=== PATIENT | female | born 1950 | race Caucasian/White ===

== ENCOUNTER 2018-01-11 19:37 | Observation (INO) | payer MEDICARE, SELFPAY ==
[2018-01-11 19:38] VITALS: BP 180/138; BP 207/135; PULSE 92; PULSE 98; RESP 16; RESP 18; TEMP 37.1; O2SAT 98; BMI 21.7
--- NOTE | 2018-01-11 19:49 | XR_ITS ---
XR chest 2V HISTORY: ITS.REASON: chest pain ORDERING PHYSICIAN: Jeremias David MD PATIENT AGE: 67 years COMPARISON: 11/13/2016 FINDINGS: The cardiomediastinal silhouette and pulmonary vascularity are within normal limits. The lungs are clear without infiltrates, suspicious nodules, or pleural effusions. Surgical clips are present over the left lower chest. Coronary artery stents are noted. There is a faint nodular opacity in the right midlung at the second interspace measuring 5 mm, possibly due to to summation artifact from overlying vessel and may be confirmed with follow-up No acute bony abnormalities. IMPRESSION: No acute finding. Possible summation density right upper lobe versus developing nodule. Consider follow-up radiograph to confirm stability or resolution
--- NOTE | 2018-01-11 20:04 | PC.NURSE ---
PT TO XRAY AT THIS TIME
--- NOTE | 2018-01-11 20:07 | PC.NURSE ---
PT BACK FROM XRAY
[2018-01-11 20:16] LABS: Basophils # 0.1 K/mm3 (0-0.2); Basophils % 0.5 % (0.1-2.0); Eosinophils # 0.2 K/mm3 (0.0-0.4); Eosinophils % 1.7 % (0.1-12.0); Hematocrit 40.1 % (37.0-47.0); Hemoglobin 12.2 g/dL (12.2-16.2); Lymphocytes # 4.1 K/mm3 (0.7-4.5); Lymphocytes % 43.6 K/mm3 (10-50); Mean Corpuscular HGB Conc 30.4 g/dL (31.8-35.4); Mean Corpuscular Hemoglobin 25.7 pg (27.0-31.2); Mean Corpuscular Volume 84.5 fl (81-99); Mean Platelet Volume 8.8 fl (7.4-10.4); Monocytes # 0.5 K/mm3 (0.1-1.0); Monocytes % 5.6 % (1.7-9.3); Neutrophils # 4.6 K/mm3 (1.8-7.8); Neutrophils % 48.6 % (37.0-80.0); Platelet Count 270 K/mm3 (142-424); Red Blood Count 4.74 M/mm3 (4.20-5.40); Red Cell Distribution Width 16.3 % (11.5-17.5); White Blood Count 9.4 K/mm3 (4.8-10.8)
[2018-01-11 20:23] LABS: Lipase 197 u/L (73-393)
[2018-01-11 20:26] VITALS: BP 144/85; PULSE 74; RESP 16; O2SAT 100
[2018-01-11 20:37] LABS: Alanine Aminotransferase 23 U/L (12-78); Albumin Level 4.1 gm/dL (3.4-5.0); Albumin/Globulin Ratio 1.1 (1.1-1.8); Alkaline Phosphatase 97 U/L (46-116); Amylase 35 U/L (25-125); Anion Gap 15.4 mEq/L (5-15); Aspartate Amino Transferase 14 U/L (15-37); Bilirubin,Total 0.4 mg/dL (0.2-1.0); Blood Urea Nitrogen 13 mg/dL (7-18); CKMB Relative Index 1.1 U/L (0-4.0); Calcium 8.6 mg/dL (8.5-10.1); Carbon Dioxide 25 mmol/L (21.0-32.0); Chloride 107 mmol/L (98-107); Creatine Kinase 70 U/L (26-192); Creatine Kinase MB 0.8 mg/ml (0.0-3.6); Creatinine Clearance Estimated 46 mL/min (0-300); Creatinine,Serum 0.75 mg/dL (0.55-1.02); Estimated Glomerular Filt Rate 78 ml/min (>60); GFR (African American) 94 ML/MIN (>60); Globulin 3.7 gm/dl (1.3-3.2); Glucose 114 mg/dL (74-106); Potassium 3.4 mmoL/L (3.5-5.1); Sodium 144 mmol/L (136-145); Total Protein,Serum 7.8 gm/dL (6.4-8.2); Troponin I < 0.02 ng/ml (0.00-0.06)
--- NOTE | 2018-01-11 20:50 | HMH.EDCP ---
ED Disposition Clinical Impression: Chest pain Qualifiers: Chest pain type: precordial pain Qualified Code(s): R07.2 - Precordial pain Disposition: Admitted as Observation Condition on Discharge: Good Referrals: Maurice Holden MD [Primary Care Provider] - - Critical Care Critical Care Time: No Attestation: On 01/11/18, the high probability of a clinically significant, sudden or life threatening deterioration of the following system(s) required my full and direct attention, intervention and personal management. The time I documented below is in addition to time spent performing reported procedures but includes the following listed in this critical care notation. Medical Decision Making - Medical Records Medical records reviewed: Yes: I reviewed the patient's medical records. Vital Signs: 01/11/18 19:38 01/11/18 20:26 Temperature 98.8 F Temperature Source Oral Pulse Rate [Right Brachial] 92 H 74 Respiratory Rate 16 16 Blood Pressure [Right Arm] 180/138 144/85 Blood Pressure Mean [Right Arm] 152 104 Blood Pressure Source [Right Arm] Automatic Cuff Automatic Cuff Blood Pressure Position [Right Arm] Supine Supine 02 Sat by Pulse Oximetry 98 100 Oxygen Delivery Method Room Air Room Air - Lab Data Lab results reviewed: Yes: I reviewed the patient's lab results. Lab Results 01/11/18 20:02: Sodium 144, Potassium 3.4 L, Chloride 107, Carbon Dioxide 25, Anion Gap 15.4 H, BUN 13, Creatinine 0.75, Estimated Creat Clear 46, Estimated GFR 78, Est GFR ( Amer) 94, Glucose 114 H, Calcium 8.6, Total Bilirubin 0.4, AST 14 L, ALT 23, Alkaline Phosphatase 97, Total Creatine Kinase 70, CK-MB (CK-2) 0.8, CK-MB (CK-2) Rel Index 1.1, Troponin I < 0.02, Total Protein 7.8, Albumin 4.1, Globulin 3.7 H, Albumin/Globulin Ratio 1.1, Amylase 35 01/11/18 20:02: Lipase 197 Result diagrams: 01/11/18 20:02 Orders (Tests/Meds): ED MEDICATIONS Generic Name Dose Route Start Last Admin Trade Name Freq PRN Reason Stop Dose Admin Nitroglycerin 0.4 mg 01/11/18 19:55 01/11/18 19:56 Nitrostat 0.4mg Sl Tablet SL 02/10/18 19:54 0.4 mg [id number] PRN Administration Chest Pain Discontinued Medications Generic Name Dose Route Start Last Admin Trade Name Sherry PRN Reason Stop Dose Admin Aspirin 324 mg 01/11/18 19:55 01/11/18 19:56 Aspirin 81mg Chewable Tablet PO 01/11/18 19:56 324 mg ONCE ONE Administration ORDERS Category Date Time Status XR chest 2V Stat Exams 01/11/18 19:49 Taken Complete Blood Count Auto Diff Stat Lab 01/11/18 20:02 Received ECG Request by /Brianna Stat Y 01/11/18 19:49 Ordered - Radiology Data #1 Image(s): Chest Image Reviewed: Yes I reviewed the patient's radiology image Preliminary Findings: Normal/NAD - ECG Data Tracing #1 I reviewed this ECG and interpreted as documented below: Normal Sinus Rhythm: Yes Ischemic changes: non-specific ST-T wave changes - Tomasz Inquiry Pt receiving controlled substance: No Chest Pain HPI - General Chief Complaint: Chest Pain Stated Complaint: cp Time Seen by Provider: 01/11/18 20:50 Mode of Arrival: Ambulatory Source of Information: Patient, Spouse, Medical Record Limitations: No Limitations Description of Symptoms (Recalled from ER Triage Doc. by RN): Reports chest pain that starts in her left chest, radiating into her left jaw. Reports mild SOA since syptoms started. CP started approx 16 hours ago - History of Present Illness HPI narrative: pt with lt ant chest pain with rad to neck - hx of ht disease MD complaint: chest pain indicative of cardiac Onset (ago): day(s) Duration: intermittent Activity at onset: during rest Pain location: substernal Severity: moderate Quality: tightness Risk Factors for CAD: Hypertension, Family Hx of CAD Treatments prior to or on arrival for Cardiac Chest Pain: none - SP Score Non-Stemi Age of patient: 65 yrs or more Number of risk factors for CAD: Presence
[2018-01-11 20:52] VITALS: BP 138/84; PULSE 69; RESP 18; O2SAT 97
--- NOTE | 2018-01-11 21:02 | ED_ITS ---
ED Disposition Clinical Impression: Chest pain Qualifiers: Chest pain type: precordial pain Qualified Code(s): R07.2 - Precordial pain Disposition: Admitted as Observation Condition on Discharge: Good Referrals: Maurice Holden MD [Primary Care Provider] - - Critical Care Critical Care Time: No Attestation: On 01/11/18, the high probability of a clinically significant, sudden or life threatening deterioration of the following system(s) required my full and direct attention, intervention and personal management. The time I documented below is in addition to time spent performing reported procedures but includes the following listed in this critical care notation. Medical Decision Making - Medical Records Medical records reviewed: Yes: I reviewed the patient's medical records. Vital Signs: 01/11/18 19:38 01/11/18 20:26 Temperature 98.8 F Temperature Source Oral Pulse Rate [Right Brachial] 92 H 74 Respiratory Rate 16 16 Blood Pressure [Right Arm] 180/138 144/85 Blood Pressure Mean [Right Arm] 152 104 Blood Pressure Source [Right Arm] Automatic Cuff Automatic Cuff Blood Pressure Position [Right Arm] Supine Supine 02 Sat by Pulse Oximetry 98 100 Oxygen Delivery Method Room Air Room Air - Lab Data Lab results reviewed: Yes: I reviewed the patient's lab results. Lab Results 01/11/18 20:02: Sodium 144, Potassium 3.4 L, Chloride 107, Carbon Dioxide 25, Anion Gap 15.4 H, BUN 13, Creatinine 0.75, Estimated Creat Clear 46, Estimated GFR 78, Est GFR ( Amer) 94, Glucose 114 H, Calcium 8.6, Total Bilirubin 0.4, AST 14 L, ALT 23, Alkaline Phosphatase 97, Total Creatine Kinase 70, CK-MB (CK-2) 0.8, CK-MB (CK-2) Rel Index 1.1, Troponin I < 0.02, Total Protein 7.8, Albumin 4.1, Globulin 3.7 H, Albumin/Globulin Ratio 1.1, Amylase 35 01/11/18 20:02: Lipase 197 Result diagrams: 01/11/18 20:02 Orders (Tests/Meds): ED MEDICATIONS Generic Name Dose Route Start Last Admin Trade Name Freq PRN Reason Stop Dose Admin Nitroglycerin 0.4 mg 01/11/18 19:55 01/11/18 19:56 Nitrostat 0.4mg Sl Tablet SL 02/10/18 19:54 0.4 mg Q5MINP PRN Administration Chest Pain Discontinued Medications Generic Name Dose Route Start Last Admin Trade Name Freq PRN Reason Stop Dose Admin Aspirin 324 mg 01/11/18 19:55 01/11/18 19:56 Aspirin 81mg Chewable Tablet PO 01/11/18 19:56 324 mg ONCE ONE Administration ORDERS Category Date Time Status XR chest 2V Stat Exams 01/11/18 19:49 Taken Complete Blood Count Auto Diff Stat Lab 01/11/18 20:02 Received ECG Request by /Brianna Stat Y 01/11/18 19:49 Ordered - Radiology Data #1 Image(s): Chest Image Reviewed: Yes I reviewed the patient's radiology image Preliminary Findings: Normal/NAD - ECG Data Tracing #1 I reviewed this ECG and interpreted as documented below: Normal Sinus Rhythm: Yes Ischemic changes: non-specific ST-T wave changes - Tomasz Inquiry Pt receiving controlled substance: No Chest Pain HPI - General Chief Complaint: Chest Pain Stated Complaint: cp Time Seen by Provider: 01/11/18 20:50 Mode of Arrival: Ambulatory Source of Information: Patient, Spouse, Medical Record Limitations: No Limitations Description of Symptoms (Recalled fr
[2018-01-11 21:08] VITALS: BP 138/84; PULSE 68; RESP 16; TEMP 37.1; O2SAT 98
[2018-01-11 21:35] VITALS: BMI 21.7
[2018-01-11 21:43] VITALS: O2SAT 99
[2018-01-12] VITALS: BP 141/78; PULSE 84; RESP 18; TEMP 36.6; O2SAT 97
[2018-01-12 04:00] VITALS: BP 129/68; PULSE 67; RESP 18; TEMP 36.4; O2SAT 96
--- NOTE | 2018-01-12 04:34 | PC.NURSE ---
PT ADMITTED THIS SHIFT. NO C/O OF PAIN. HAS REST WELL THIS SHIFT. NO OTHER CONCERNS AT THIS TIME. WILL CONT. TO MONITOR.
[2018-01-12 06:48] LABS: Basophils # 0.1 K/mm3 (0-0.2); Basophils % 0.6 % (0.1-2.0); Eosinophils # 0.2 K/mm3 (0.0-0.4); Eosinophils % 2.5 % (0.1-12.0); Hematocrit 34.4 % (37.0-47.0); Lymphocytes # 2.7 K/mm3 (0.7-4.5); Lymphocytes % 35.9 K/mm3 (10-50); Mean Corpuscular HGB Conc 30.7 g/dL (31.8-35.4); Mean Corpuscular Hemoglobin 26.1 pg (27.0-31.2); Mean Corpuscular Volume 85.1 fl (81-99); Mean Platelet Volume 8.5 fl (7.4-10.4); Monocytes # 0.5 K/mm3 (0.1-1.0); Monocytes % 6.3 % (1.7-9.3); Neutrophils # 4.1 K/mm3 (1.8-7.8); Neutrophils % 54.6 % (37.0-80.0); Platelet Count 224 K/mm3 (142-424); Red Blood Count 4.04 M/mm3 (4.20-5.40); Red Cell Distribution Width 16.2 % (11.5-17.5); White Blood Count 7.6 K/mm3 (4.8-10.8)
--- NOTE | 2018-01-12 06:53 | CA_ITS ---
PROCEDURE: 2-D M-mode and color Doppler study INDICATIONS FOR THE TEST: Chest pain COPDX Heart Murmur Tobacco SmokingX Palpitations Fatigue Syncope Edema HypertensionXDiabetes Mellitus Rheumatic Fever SOBXDOE Obesity HyperlipidemiaX Family History HD Additional History CAD PATIENT INFORMATION HEIGHT: 61 WEIGHT:115 GENDER: Female B/P:144/85 2-D/M-MODE INTERPRETATION: 2-D MEASUREMENTS OBSERVED VALUES IN CMS Right Ventricular Dimension (RVDd) 1.9 Interventricular Septum (Thickness)(IVsd) 1.1 Left Ventricular Internal Dimensions(LVIDd) 5.2 Left Ventricular Posterior Wall (Thickness)(LVPWd) 1.0 Aortic Root 3.6 Aortic Cusp Separation 1.8 Left Atrial Dimensions (LAD) 2.8 2D 1. Left atrium is mildly enlarged, left ventricle is normal size, left ventricle wall thickness is upper limit of normal, there is preserved left ventricular systolic function visually estimated ejection fraction 55% with no obvious regional wall motion abnormality. 2. The right atrium and right ventricle are mildly enlarged with normal contractility. 3. The aortic valve is minimally thickened and fibrosed. 4. The mitral and tricuspid valve leaflets are minimally thickened. 5. The pulmonic valve is poorly visualized. 6. No significant pericardial effusion noted. DOPPLER INTERROGATION: Doppler interrogation of the aortic, mitral and tricuspid valvular presence of mild mitral and tricuspid regurgitation, calculated right ventricular systolic pressure is 34 mmHg, grade 1 diastolic dysfunction seen with tissue Doppler evidence of raised left atrial pressure. CONCLUSION: 1. Mildly enlarged left atrium, normal left ventricular size, visually estimated ejection fraction 55% with no obvious regional wall motion abnormality, grade 1 diastolic dysfunction seen with tissue Doppler evidence of raised left atrial pressure. 2. Mild mitral and tricuspid regurgitation, calculated right ventricular systolic pressure is 34 mmHg. 3. No significant pericardial effusion noted.
[2018-01-12 06:54] LABS: Hemoglobin 10.6 g/dL (12.2-16.2)
[2018-01-12 07:01] LABS: Anion Gap 10.6 mEq/L (5-15); Blood Urea Nitrogen 14 mg/dL (7-18); Carbon Dioxide 25 mmol/L (21.0-32.0); Chloride 112 mmol/L (98-107); Chol/HDL Ratio 2.1 (1-3.5); Cholesterol 112 mg/dL (140-200); Creatinine Clearance Estimated 46 mL/min (0-300); Creatinine,Serum 0.65 mg/dL (0.55-1.02); Estimated Glomerular Filt Rate 91 ml/min (>60); GFR (African American) 111 ML/MIN (>60); Glucose 96 mg/dL (74-106); HDL Cholesterol 54 mg/dL (29-89); LDL Cholesterol 50 mg/dL (0-130); Potassium 3.6 mmoL/L (3.5-5.1); Sodium 144 mmol/L (136-145); Triglycerides 39 mg/dL (30-200); Troponin I 0.04 ng/ml (0.00-0.06); VLDL Cholesterol 8 mg/dL (0-40)
--- NOTE | 2018-01-12 07:27 | PC.NURSE ---
REPORT GIVEN TO Paola LIVINGSTON RN
--- NOTE | 2018-01-12 07:35 | HMH.HP ---
*Admission Date: 01/11/18 *Chief complaint: Left-sided chest pain *History of present illness: 67-year-old female with personal history of coronary artery disease, previous [place] in 2015 with stenting ?5, hypertension presented to the emergency department with prolonged episode of chest pain. ER note references 6 hours, this morning patient tells me pain has now been present for about 2 days. 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 However, yesterday evening with persistence of discomfort including pain that radiated into the left neck and into the left elbow patient sought medical treatment. In the event department her first troponin was negative and she has been admitted for cardiology consultation. She denies shortness of breath, nausea, diaphoresis with her chest pain. She has chest pain this morning although it has decreased in intensity. [facility] History I have reviewed the patient's past medical history: Yes 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: Reports:: Cancer (breast), Hypertension, Myocardial Infarction Denies:: Diabetes Mellitus Type 1, Diabetes Mellitus Type 2, MRSA Other 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: Reports: Chemotherapy, Radiation Therapy, Sinus Problems Laterality Cases: Left: Breast Biopsy, Lumpectomy, Bilateral: Myringotomy (Ear Tubes) Other Surgeries: Yes: Cancer Surgery, Cardiac Catheterization, Colonoscopy, Coronary Stent, , Hysterectomy-Total, Other (GALL BLADDER) Amputation: No Fractures: No - *Social History Educational Level: Attended High School Smoking Status: Current every day smoker Tobacco Type: cigarettes Alcohol Intake: never Occupational Status: unemployed Housing: house Household Members: spouse - Psychiatric History Expresses thoughts of harming self/others: None Suicide Plan Description: No Plan *Family Hx:: Cancer, Diabetes, Heart Attack, Hyperlipidemia Review of Systems - Review of Systems Review of systems:: pertinent systems reviewed and negative unless documented below - *Neurologic Denies seizure-like activity Meds Home Medications Medication Instructions Recorded Confirmed Type Amlodipine Besylate [Amlodipine 10 mg PO DAILY 01/11/18 01/11/18 History 10mg Tab] Aspirin [Aspir 81] 81 mg PO DAILY 01/11/18 01/11/18 History Atorvastatin Calcium [Atorvastatin 40 mg PO DAILY 01/11/18 01/11/18 History 40mg Tab] Metoclopramide HCl [Reglan 5mg 5 mg PO DAILY 01/11/18 01/11/18 History Tablet] Montelukast Sodium [Montelukast 10 mg PO HS 01/11/18 01/11/18 History 10mg Tab] Nitroglycerin [Nitrostat 0.4mg SL 0.4 mg SL DAILY 01/11/18 01/11/18 History Tablet] Pantoprazole Sodium [Protonix 40mg 40 mg PO DAILY 01/11/18 01/11/18 History tablet] RX: Clopidogrel Bisulfate [Plavix 75 mg PO DAILY 01/11/18 01/11/18 History 75mg Tab] RX: Lisinopril [Lisinopril 20mg 20 mg PO DAILY 01/11/18 01/11/18 History Tab] Allergies Allergy/AdvReac Type Severity Reaction Status Date / Time No Known Allergies Allergy Verified 01/11/18 20:25 Exam Vital signs and Labs for Last 24 Hours: Temp Pulse Resp BP Pulse Ox 97.6 F 67 18 129/68 96 01/12/18 04:00 01/12/18 04:00 01/12/18 04:00 01/12/18 04:00 01/12/18 04:00 Laboratory Results - last 24 hr 01/12/18 06:30: WBC 7.6, RBC 4.04 L, Hgb 10.6 L D, Hct 34.4 L, MCV 85.1, MCH 26.1 L, MCHC 30.7 L, RDW 16.2, Plt Count 224, MPV 8.5, Neut % (Auto) 54.6, Lymph % (Auto) 35.9, [place] % (Auto) 6.3, Eos % (Auto) 2.5, Baso % (Auto) 0.6, Neut # (Auto) 4.1, Lymph # (Auto) 2.7, [place] # (Auto) 0.5, Eos # (Auto) 0.2, Baso # (Auto) 0.1 01/12/18 06:30: Sodium 144, Potassium 3.6, Chloride 112 H, Carbon Dioxide 25, Anion Gap 10.6, BUN 14, Creatinine 0.65, Estimated Creat Clear 46, Estimated GFR 91, Est GFR ( Amer) 111, Glucose 96, Troponin I 0.04, Triglycerides 39, Cholesterol 112 L, LDL [place]
--- NOTE | 2018-01-12 07:38 | P.HP_ITS ---
*Admission Date: 01/11/18 *Chief complaint: Left-sided chest pain *History of present illness: 67-year-old female with personal history of coronary artery disease, previous [place] in 2015 with stenting ?5, hypertension presented to the emergency department with prolonged episode of chest pain. ER note references 6 hours, this morning patient tells me pain has now been present for about 2 days. 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 However, yesterday evening with persistence of discomfort including pain that radiated into the left neck and into the left elbow patient sought medical treatment. In the event department her first troponin was negative and she has been admitted for cardiology consultation. She denies shortness of breath, nausea, diaphoresis with her chest pain. She has chest pain this morning although it has decreased in intensity. [facility] History I have reviewed the patient's past medical history: Yes 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: Reports:: Cancer (breast), Hypertension, Myocardial Infarction Denies:: Diabetes Mellitus Type 1, Diabetes Mellitus Type 2, MRSA Other 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: Reports: Chemotherapy, Radiation Therapy, Sinus Problems Laterality Cases: Left: Breast Biopsy, Lumpectomy, Bilateral: Myringotomy (Ear Tubes) Other Surgeries: Yes: Cancer Surgery, Cardiac Catheterization, Colonoscopy, Coronary Stent, , Hysterectomy-Total, Other (GALL BLADDER) Amputation: No Fractures: No - *Social History Educational Level: Attended High School Smoking Status: Current every day smoker Tobacco Type: cigarettes Alcohol Intake: never Occupational Status: unemployed Housing: house Household Members: spouse - Psychiatric History Expresses thoughts of harming self/others: None Suicide Plan Description: No Plan *Family Hx:: Cancer, Diabetes, Heart Attack, Hyperlipidemia Review of Systems - Review of Systems Review of systems:: pertinent systems reviewed and negative unless documented below - *Neurologic Denies seizure-like activity Meds Home Medications Medication Instructions Recorded Confirmed Type Amlodipine Besylate [Amlodipine 10 mg PO DAILY 01/11/18 01/11/18 History 10mg Tab] Aspirin [Aspir 81] 81 mg PO DAILY 01/11/18 01/11/18 History Atorvastatin Calcium [Atorvastatin 40 mg PO DAILY 01/11/18 01/11/18 History 40mg Tab] Metoclopramide HCl [Reglan 5mg 5 mg PO DAILY 01/11/18 01/11/18 History Tablet] Montelukast Sodium [Montelukast 10 mg PO HS 01/11/18 01/11/18 History 10mg Tab] Nitroglycerin [Nitrostat 0.4mg SL 0.4 mg SL DAILY 01/11/18 01/11/18 History Tablet] Pantoprazole Sodium [Protonix 40mg 40 mg PO DAILY 01/11/18 01/11/18 History tablet] RX: Clopidogrel Bisulfate [Plavix 75 mg PO DAILY 01/11/18 01/11/18 History 75mg Tab] RX: Lisinopril [Lisinopril 20mg 20 mg PO DAILY 01/11/18 01/11/18 History Tab] Allergies Allergy/AdvReac Type Severity Reaction Status Date / Time No Known Allergies Allergy Verified 01/11/18 20:25 Exam Vital signs and Labs for Last 24 Hours: Temp Pulse Resp BP Pulse Ox 97.6 F 67 18 129/68 96 01/12/18 04:00 01/12/18 04:00 01/12/18 04:00 01/12/18 04:00 01/12/18 04:00 Laboratory Results - last 24 hr 01/12/18 06:30: WBC 7.6, RBC 4.04 L, Hgb 10
--- NOTE | 2018-01-12 07:53 | P.CONPHA_ITS ---
[facility] Pharmacy VTE Monitoring - Patient Demographics Admission date: 01/11/18 Report Date: 01/12/18 Time: 07:53 Allergies/Adverse Reactions: Patient Allergies No Known Allergies Allergy (Verified 01/11/18 20:25) Height: 1.55 m Weight: 52.277 kg Patient Problems: Current Active Problems Chest pain (Acute) History of [place] (myocardial infarction) (Acute) Coronary artery disease (Acute) - VTE Risk Labs: VTE Related Lab Results Hgb 10.6 g/dL (12.2-16.2) L D 01/12/18 06:30 Hct 34.4 % (37.0-47.0) L 01/12/18 06:30 Plt Count 224 K/mm3 (142-424) 01/12/18 06:30 BUN 14 mg/dL (7-18) 01/12/18 06:30 Creatinine 0.65 mg/dL (0.55-1.02) 01/12/18 06:30 Estimated Creat Clear 46 mL/min (0-300) 01/12/18 06:30 Was VTE Risk Assessment Performed: Yes VTE Score: 3 VTE Risk Level: Low Risk - Prophylaxis VTE Prophylaxis Ordered?: Yes Types of VTE Prophylaxis: TEDS Knee High Location of Applied Device: Bilateral Lower Extremeties - VTE Diagnosis Confirmed Treatment or plan recommended: Continue Current Treatment
[2018-01-12 07:59] VITALS: BP 162/80; PULSE 58; RESP 18; TEMP 36.6; O2SAT 96
--- NOTE | 2018-01-12 08:07 | HMH.CNCARD ---
History of Present Illness Consult date: 01/12/18 Requesting physician: Jeremias David Consult reason: chest pain Chief complaint: neck pain, chest pain, left arm pain Additional 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:: 1. Coronary artery disease A. History of non-ST elevation [place] with subsequent coronary artery stenting to the LAD and RCA in September 2005, Dr. Satish Chang, [place], [place]. 2. Hypertension 3. Hyperlipidemia 4. 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 Left breast cancer status post surgery, chemotherapy and radiation in the remote past. History of present illness: 67-year-old white female with known coronary artery disease after non-ST elevation AK in September 2015 for which she received drug-eluting stents to both LAD and RCA had been doing well until 2 days ago when she developed left-sided neck discomfort that progressed to include left-sided chest discomfort described as a pinching sensation. Symptoms seem to get worse when she is darvin but without definite worsening with exertion. She denies any worsening with deep breathing or coughing. She has been on antibiotics recently for upper respiratory infection. Patient was admitted for observation. Initial troponin less than 0.02 with second troponin 0.04 this morning. Patient denies any chest pain at this time. EKG is sinus without acute ST segment changes. Cardiology consulted for evaluation. Patient states these symptoms are not like her previous [place] symptoms in 2014. [facility] History 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: Reports:: Cancer (breast), Hypertension, Myocardial Infarction Denies:: Diabetes Mellitus Type 1, Diabetes Mellitus Type 2, MRSA Other 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: Reports: Chemotherapy, Radiation Therapy, Sinus Problems Laterality Cases: Left: Breast Biopsy, Lumpectomy, Bilateral: Myringotomy (Ear Tubes) Other Surgeries: Yes: Cancer Surgery, Cardiac Catheterization, Colonoscopy, Coronary Stent, , Hysterectomy-Total, Other (GALL BLADDER) Amputation: No Fractures: No - *Social History Educational Level: Attended High School Smoking Status: Current every day smoker Tobacco Type: cigarettes Alcohol Intake: never Occupational Status: unemployed Housing: house Household Members: spouse - Psychiatric History Expresses thoughts of harming self/others: None Suicide Plan Description: No Plan *Family Hx:: Cancer, Diabetes, Heart Attack, Hyperlipidemia Meds Home Medications Medication Instructions Recorded Confirmed Type Aspirin [Aspir 81] 81 mg PO DAILY 01/11/18 01/11/18 History Atorvastatin Calcium [Atorvastatin 40 mg PO DAILY 01/11/18 01/11/18 History 40mg Tab] Clopidogrel Bisulfate [Plavix 75mg 75 mg PO DAILY 01/11/18 01/11/18 History Tab] Lisinopril [Lisinopril 20mg Tab] 20 mg PO DAILY 01/11/18 01/11/18 History Montelukast Sodium [Montelukast 10 mg PO HS 01/11/18 01/11/18 History 10mg Tab] Nitroglycerin [Nitrostat 0.4mg SL 0.4 mg SL DAILY 01/11/18 01/11/18 History Tablet] Pantoprazole Sodium [Protonix 40mg 40 mg PO DAILY 01/11/18 01/11/18 History tablet] Allergies Allergy/AdvReac Type Severity Reaction Status Date / Time No Known Allergies Allergy Verified 01/11/18 20:25 Review of Systems - *Cardiovascular Reports chest pain, Reports chest pain with activity, Denies shortness of breath - *Respiratory Denies shortness of breath with activity - *Neurologic Denies seizure-like activity Exam Vital signs and Labs for Last 24 Hours: Temp Pulse Resp BP Pulse Ox 97.9 F 58 L 18 162/80 96 01/12/18 07:59 01/12/18 07:59 01/12/18 07:59 01/12/18 07:59 01/12/18 07:59 Laboratory Results - last 24 hr 01/12/18 06:30: WBC 7.6, RBC 4.04 L, Hgb 10.6 L D, Hct 34.4 L, MCV 85.1, MCH 26.1 L, MCHC 30.7 L, RDW 16.2, Plt Count 224, MPV 8.5, Neut % (Auto) 54.6, Lymph % (Auto) 35.9, [place] % (Auto) 6.3, Eos % (Auto) 2.5, Baso % (Auto) 0.6, Neut # (Auto) 4.1, Lymph # (Auto) 2.7, [place] # (Auto) 0.5, Eos # (Auto) 0.2, Baso # (Auto) 0.1
--- NOTE | 2018-01-12 08:38 | NM_ITS ---
NM jem perf SPECT rest str CLINICAL INDICATION: Chest pain, shortness of breath, fatigue, neck pain, hypertension, tobacco use, positive family history ITS.REASON: chest pain, CAD ORDERING PHYSICIAN: Jeremias David MD PATIENT AGE: 67 years COMPARISON: None DOSE: 10.77 mCi technetium Myoview intravenously at rest followed by 31.6 mCi technetium Myoview following the intravenous ministration of 0.4 mg of Lexiscan. Resting blood pressure is 180/94. Stress blood pressure 159/75. FINDINGS: Ejection fraction is calculated to be 56%. No obvious wall motion abnormalities detected. SPECT and polar map images reviewed. On the stress images there is a photopenic defect within the apex extending into the anterior wall as well as the anterolateral septum. This shows some peripheral reversibility on the rest images at the anterior apical region and anteroseptal area. There is a persistent small photopenic defect in the apex slightly toward the septum on rest images. These findings are consistent with an area of infarction with jt-infarct ischemia. IMPRESSION: 1. Normal ejection fraction of 86%. 2. Abnormal SPECT images as described above consistent with an area of infarction involving the apex with jt-infarct ischemia as described above
[2018-01-12 10:00] VITALS: O2SAT 96
[2018-01-12 12:00] VITALS: BP 155/78; PULSE 56; RESP 18; TEMP 36.7; O2SAT 99
--- NOTE | 2018-01-12 16:37 | P.DS_ITS ---
General - General Admission date: 01/11/18 Discharge date: 01/12/18 HPI HPI: 67-year-old female with personal history of coronary artery disease, previous DC in 2015 with stenting ?5, hypertension presented to the emergency department with prolonged episode of chest pain. ER note references 6 hours, this morning patient tells me pain has now been present for about 2 days. 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 However, yesterday evening with persistence of discomfort including pain that radiated into the left neck and into the left elbow patient sought medical treatment. In the event department her first troponin was negative and she has been admitted for cardiology consultation. She denies shortness of breath, nausea, diaphoresis with her chest pain. She has chest pain this morning although it has decreased in intensity. Objective Vital signs: Temp Pulse Resp BP Pulse Ox 98.1 F 56 L 18 155/78 99 01/12/18 12:00 01/12/18 12:00 01/12/18 12:00 01/12/18 12:00 01/12/18 12:00 Results Labs on day of discharge: Labs from last 24 hours 01/12/18 01/12/18 06:30 06:30 WBC 7.6 RBC 4.04 L Hgb 10.6 L D Hct 34.4 L MCV 85.1 MCH 26.1 L MCHC 30.7 L RDW 16.2 Plt Count 224 MPV 8.5 Neut % (Auto) 54.6 Lymph % (Auto) 35.9 [place] % (Auto) 6.3 Eos % (Auto) 2.5 Baso % (Auto) 0.6 Neut # (Auto) 4.1 Lymph # (Auto) 2.7 [place] # (Auto) 0.5 Eos # (Auto) 0.2 Baso # (Auto) 0.1 Sodium 144 Potassium 3.6 Chloride 112 H Carbon Dioxide 25 Anion Gap 10.6 BUN 14 Creatinine 0.65 Estimated Creat Clear 46 Estimated GFR 91 Est GFR ( Amer) 111 Glucose 96 Troponin I 0.04 Triglycerides 39 Cholesterol 112 L LDL Cholesterol 50 VLDL Cholesterol 8 HDL Cholesterol 54 Cholesterol/HDL Ratio 2.1 DS: Diagnosis - Discharge Diagnosis (1) Chest pain Status: Acute (2) History of DC (myocardial infarction) Status: Acute (3) Coronary artery disease Status: Acute Discharge Plan - Patient Discharge Instructions ACTIVITY: Continue current activity DIET: continue same diet - Follow up Plan Follow up with: Charlie Mcdaniels MD [Staff Physician] - 1 week Home Medications: Home Medications Medication Instructions Recorded Confirmed Type Aspirin [Aspir 81] 81 mg PO DAILY 01/11/18 01/11/18 History Atorvastatin Calcium [Atorvastatin 40 mg PO DAILY 01/11/18 01/11/18 History 40mg Tab] Clopidogrel Bisulfate [Plavix 75mg 75 mg PO DAILY 01/11/18 01/11/18 History Tab] Lisinopril [Lisinopril 20mg Tab] 40 mg PO BID 01/11/18 01/12/18 History Montelukast Sodium [Montelukast 10 mg PO HS 01/11/18 01/11/18 History 10mg Tab] Nitroglycerin [Nitrostat 0.4mg SL 0.4 mg SL Q5MINP PRN 01/11/18 01/12/18 History Tablet] Pantoprazole Sodiu
--- NOTE | 2018-01-26 09:47 | P.CONS_ITS ---
History of Present Illness Consult date: 01/12/18 Requesting physician: Jeremias David Consult reason: chest pain Chief complaint: neck pain, chest pain, left arm pain Additional 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:: 1. Coronary artery disease A. History of non-ST elevation CO with subsequent coronary artery stenting to the LAD and RCA in September 2005, Dr. Satish Chang, [place], [place]. 2. Hypertension 3. Hyperlipidemia 4. 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 Left breast cancer status post surgery, chemotherapy and radiation in the remote past. History of present illness: 67-year-old white female with known coronary artery disease after non-ST elevation CO in September 2015 for which she received drug-eluting stents to both LAD and RCA had been doing well until 2 days ago when she developed left- sided neck discomfort that progressed to include left-sided chest discomfort described as a pinching sensation. Symptoms seem to get worse when she is darvin but without definite worsening with exertion. She denies any worsening with deep breathing or coughing. She has been on antibiotics recently for upper respiratory infection. Patient was admitted for observation. Initial troponin less than 0.02 with second troponin 0.04 this morning. Patient denies any chest pain at this time. EKG is sinus without acute ST segment changes. Cardiology consulted for evaluation. Patient states these symptoms are not like her previous CO symptoms in 2014. [facility] History 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: Reports:: Cancer (breast), Hypertension, Myocardial Infarction Denies:: Diabetes Mellitus Type 1, Diabetes Mellitus Type 2, MRSA Other 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: Reports: Chemotherapy, Radiation Therapy, Sinus Problems Laterality Cases: Left: Breast Biopsy, Lumpectomy, Bilateral: Myringotomy (Ear Tubes) Other Surgeries: Yes: Cancer Surgery, Cardiac Catheterization, Colonoscopy, Coronary Stent, , Hysterectomy-Total, Other (GALL BLADDER) Amputation: No Fractures: No - *Social History Educational Level: Attended High School Smoking Status: Current every day smoker Tobacco Type: cigarettes Alcohol Intake: never Occupational Status: unemployed Housing: house Household Members: spouse - Psychiatric History Expresses thoughts of harming self/others: None Suicide Plan Description: No Plan *Family Hx:: Cancer, Diabetes, Heart Attack, Hyperlipidemia Meds Home Medications Medication Instructions Recorded Confirmed Type Aspirin [Aspir 81] 81 mg PO DAILY 01/11/18 01/11/18 History Atorvastatin Calcium [Atorvastatin 40 mg PO DAILY 01/11/18 01/11/18 History 40mg Tab] Clopidogrel Bisulfate [Plavix 75mg 75 mg PO DAILY 01/11/18 01/11/18 History Tab] Lisinopril [Lisinopril 20mg Tab] 20 mg PO DAILY 01/11/18 01/11/18 History Montelukast Sodium [Montelukast 10 mg PO HS 01/11/18 01/11/18 History 10mg Tab] Nitroglycerin [Nitrostat 0.4mg SL 0.4 mg SL DAILY 01/11/18 01/11/18 History Tablet] Pantoprazole Sodium [Protonix 40mg 40 mg PO DAILY 01/11/18 01/11/18 History tablet] Allergies Allergy/AdvReac Type Severity Reaction Status Date / Time No Known Allergies Allergy Verified 01/11/18 20:25 Review of Systems - *Cardiovascular Reports chest pain, Reports chest pain with activity, Denies shortness of breath - *Respiratory Denies shortness of breath with activity - *Neurologic Denies seizure-like activity Exam Vital signs and Labs for Last 24 Hours:
== END 2018-01-12 17:54 | disposition home or self-care (01) ==
LOC: ER 20:27 → 2ND 21:11
PROVIDERS: Emergency Medicine; Admitting Provider Internal Medicine Adolescent Medicine; Emergency Provider Emergency Medicine; PCP Family Medicine; Visit Provider Family Medicine
DX: R07.9 Chest pain, unspecified (principal); I25.2 Old myocardial infarction; I25.10 Atherosclerotic heart disease of native coronary artery without angina pectoris; Z72.0 Tobacco use; J44.9 Chronic obstructive pulmonary disease, unspecified; I10 Essential (primary) hypertension; Z95.5 Presence of coronary angioplasty implant and graft
CPT/HCPCS: 36415; 71046; 78452; 80048; 80053; 80061; 82150; 82550; 82553; 83690; 84484; 85025; 93005; 93017; 93041; 93306; 99284; A9502; G0378; J2785

== ENCOUNTER → 2018-01-26 12:51 | Outpatient (CLI) | payer MEDICARE, SELFPAY ==
[2018-01-26 14:00] VITALS: PULSE 72
== END ==
PROVIDERS: PCP Family Medicine; Visit Provider Internal Medicine
DX: J44.9 Chronic obstructive pulmonary disease, unspecified (principal); R06.09 Other forms of dyspnea
CPT/HCPCS: 94060; 94640; 94726; 94729

== ENCOUNTER → 2018-06-15 14:02 | Outpatient (POV) | payer MEDICARE, SELFPAY | PROVIDERS: Visit Provider Dermatology | DX: Z00.00 Encounter for general adult medical examination without abnormal findings (principal) ==

== ENCOUNTER → 2019-07-11 14:21 | Outpatient (CLI) | payer MEDICARE, SELFPAY ==
[2019-07-11 15:13] LABS: Basophils % 0.6 % (0.1-2.0); Eosinophils # 0.1 K/mm3 (0.0-0.4); Eosinophils % 1.1 % (0.1-12.0); Hematocrit 36.8 % (37.0-47.0); Hemoglobin 11.2 g/dL (12.2-16.2); Lymphocytes % 48.9 % (10-50); Mean Corpuscular HGB Conc 30.6 g/dL (31.8-35.4); Mean Corpuscular Hemoglobin 25.8 pg (27.0-31.2); Mean Corpuscular Volume 84.3 fl (81-99); Mean Platelet Volume 7.1 fl (7.4-10.4); Monocytes # 0.4 K/mm3 (0.1-1.0); Monocytes % 7.3 % (1.7-9.3); Neutrophils # 2.6 K/mm3 (1.8-7.8); Neutrophils % 42.2 % (37.0-80.0); Platelet Count 279 K/mm3 (142-424); Red Blood Count 4.36 M/mm3 (4.20-5.40); White Blood Count 6.1 K/mm3 (4.8-10.8)
[2019-07-11 16:15] LABS: Chloride 106 mmol/L (98-107); Potassium 3.6 mmoL/L (3.5-5.1); Sodium 141 mmol/L (136-145)
[2019-07-11 16:29] LABS: Anion Gap 14.6 mEq/L (5-15); Blood Urea Nitrogen 15 mg/dL (7-18); Calcium 8.5 mg/dL (8.5-10.1); Carbon Dioxide 24 mmol/L (21.0-32.0); Creatinine,Serum 0.69 mg/dL (0.55-1.02); Estimated Glomerular Filt Rate 85 ml/min (>60); GFR (African American) 103 ML/MIN (>60); Glucose 84 mg/dL (74-106)
== END ==
PROVIDERS: Visit Provider Urology
DX: E78.2 Mixed hyperlipidemia (principal); I25.10 Atherosclerotic heart disease of native coronary artery without angina pectoris; I25.2 Old myocardial infarction; I27.20 Pulmonary hypertension, unspecified; I51.89 Other ill-defined heart diseases; J43.9 Emphysema, unspecified; R06.09 Other forms of dyspnea; R42 Dizziness and giddiness; R94.31 Abnormal electrocardiogram [ECG] [EKG]; F17.209 Nicotine dependence, unspecified, with unspecified nicotine-induced disorders; Z95.0 Presence of cardiac pacemaker
CPT/HCPCS: 36415; 80048; 85025

== ENCOUNTER → 2019-07-24 13:32 | Outpatient (CLI) | payer MEDICARE, SELFPAY | PROVIDERS: PCP Family Medicine; Visit Provider Urology | DX: G47.9 Sleep disorder, unspecified (principal); R40.0 Somnolence; R06.09 Other forms of dyspnea; G47.30 Sleep apnea, unspecified | CPT/HCPCS: G0399 ==

== ENCOUNTER → 2020-01-28 13:05 | Outpatient (CLI) | payer MEDICARE, SELFPAY ==
[2020-01-28 14:35] LABS: Basophils % 0.4 % (0.1-2.0); Eosinophils # 0.1 K/mm3 (0.0-0.4); Eosinophils % 1.4 % (0.1-12.0); Hematocrit 37.8 % (37.0-47.0); Hemoglobin 11.1 g/dL (12.2-16.2); Lymphocytes # 3.5 K/mm3 (0.7-4.5); Lymphocytes % 44.1 % (10-50); Mean Corpuscular HGB Conc 29.3 g/dL (31.8-35.4); Mean Corpuscular Hemoglobin 24.3 pg (27.0-31.2); Mean Platelet Volume 8.4 fl (7.4-10.4); Monocytes # 0.3 K/mm3 (0.1-1.0); Monocytes % 3.9 % (1.7-9.3); Neutrophils % 50.1 % (37.0-80.0); Platelet Count 303 K/mm3 (142-424); Red Blood Count 4.56 M/mm3 (4.20-5.40); Red Cell Distribution Width 17.5 % (11.5-17.5)
[2020-01-28 14:58] LABS: Chloride 105 mmol/L (98-107)
[2020-01-28 14:59] LABS: Sodium 141 mmol/L (136-145)
[2020-01-28 15:01] LABS: Alanine Aminotransferase 18 U/L (12-78); Aspartate Amino Transferase 26 U/L (14-36); Bilirubin,Unconjugated 0.7 mg/dL (0.0-1.1); Blood Urea Nitrogen 16 mg/dl (7-17); Carbon Dioxide 28 mmol/L (22.0-30.0); Estimated Glomerular Filt Rate 100 ml/min (>60); GFR (African American) 121 ML/MIN (>60)
[2020-01-28 15:02] LABS: Albumin Level 4.3 g/dl (3.5-5.0); Alkaline Phosphatase 64 U/L (38-126); Bilirubin,Indirect 0.5 mg/dL (0.0-0.9); Bilirubin,Total 0.5 mg/dl (0.2-1.3); Calcium 9.5 mg/dl (8.4-10.2); Chol/HDL Ratio 2.2 (1-3.5); Cholesterol 134 mg/dl (140-200); Glucose 86 mg/dl (74-100); HDL Cholesterol 60 mg/dl (40-60); Total Protein,Serum 6.8 g/dl (6.3-8.2); Triglycerides 74 mg/dl (30-150); VLDL Cholesterol 15 mg/dL (0-40)
[2020-01-28 15:13] LABS: Direct LDL Cholesterol 63.44 mg/dL (100-129)
[2020-01-28 15:17] LABS: Free T4 (Free Thyroxine) 0.91 ng/dl (0.78-2.19)
[2020-01-28 15:22] LABS: Troponin I < 0.01 ng/ml (0.00-0.034)
[2020-01-28 15:32] LABS: Thyroid Stimulating Hormone 2.13 uIU/mL (0.465-4.68)
== END ==
PROVIDERS: Visit Provider Nurse Practitioner Family
DX: I10 Essential (primary) hypertension (principal); I65.29 Occlusion and stenosis of unspecified carotid artery; I25.118 Atherosclerotic heart disease of native coronary artery with other forms of angina pectoris
CPT/HCPCS: 36415; 80048; 80061; 80076; 84439; 84443; 84484; 85025

== ENCOUNTER → 2020-02-06 06:17 | Outpatient (CLI) | payer MEDICARE, SELFPAY ==
--- NOTE | 2020-02-06 | CA_ITS ---
APPROVED REPORT Exam: Pharmacologic Technologist: Cristy Rojas Ht: 5 ft 0 in Wt: 130 lbs BSA: 1.55 m2 HR: 61 bpm BP: 120/64 mmHg Indications: Arm/neck pain, AMAYA 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 Medications: Amlodipine,,,,, Lisinopril,,,,, Aspirin,,,,, Pantoprazole,,,,, Atorvastatin,,,,, CloPIdogrel,,,,, Nitroglycerin,,,,, Stress Test Details Test: LEXISCAN HR Resting HR: 67 bpm Max Heart Rate (APMHR): 153 bpm Max HR Achieved: 100 bpm Target HR (85% APMHR): 130 bpm % of APMHR: 65 Recovery HR: 70 bpm BP Resting BP: 120.0/64.0 mmHg Max BP: 120.0/64.0 mmHg Recovery BP: 110.0/47.0 mmHg ECG Clinical Exercise duration: 04:05 min Highest Stage Achieved: Exercise capacity: 1.0 METs Stress ECG Conclusion Resting ECG: Normal sinus rhythm Symptoms: Very mild shortness of air and malaise. No chest pain. Arrhythmias/Ectopy: Rate dependent IVCD noted ST-T Changes: ST-T changes associated with rate dependent IVCD. Conclusion: Non-diagnostic Lexiscan stress. Myoview Images reported separately. Electronically signed by : Michael Buck, 02/07/2020 15:26:40
--- NOTE | 2020-02-06 06:25 | NM_ITS ---
APPROVED REPORT Exam: Nuclear Stress Test Indication: CAD, 5 STINTS, HYPERTENSION, HYPERLIPIDEMIA, TOB USE, FM.HX, Patient Location: Outpatient Stress Tech: Cristy Rojas SC Tech:Maricel Laboy, ARRT, RT (R)(N) Ht: 5 ft 0 in Wt: 130 lbs Bra Size: 38b HR: 61 bpm BP: 120/64 mmHg BSA: 1.55 m2 History: CAD, 5 STINTS, HYPERTENSION, HYPERLIPIDEMIA, TOB USE, FM.HX, Procedure: Patient received a 0.4 mg of intravenous Lexiscan, resting heart rate 61 bpm, resting blood pressure 120/64 mmHg, with Lexiscan maximum heart rate achived was 98 bpm which is Less than 85 % of the maximum predicted heart rate and blood pressure was 116/59 mmHg. soa, malaise Electrocardiogram Resting electrocardiogram showed sinus rhythm, with Lexiscan patient developed left bundle branch block. The EKG portion of the Lexiscan Myoview is nondiagnostic. Cardiac Stress and Resting SPECT Images: Cardiac Stress and Resting SPECT images were obtained using technetium 99m Myoview 31.5 mCi stress and 10.65 mCi at rest. Gated SPECT with analysis of segmental wall motion and calculation of the ejection fraction also done. Cardiac stress and resting SPECT images show partial reversible defect involving the anterior apical and anteroseptal wall consistent with mixed ischemia and scar, computer derived ejection fraction is 47% with moderate anterior apical and anteroseptal wall hypokinesis. Right ventricle is mildly enlarged with normal contractility. Conclusion: 1. The EKG portion of the Lexiscan Myoview is nondiagnostic. 2. Scintigraphic evidence of mixed ischemia and scar involving the anterior apical and anteroseptal wall as described above, computer derived ejection fraction is 47% with multiple segmental wall motion abnormalities described above. Right ventricle is mildly enlarged with normal contractility. 3. Abnormal Lexiscan Myoview study. Electronically signed by : Michael Buck, 02/07/2020 15:31:02
--- NOTE | 2020-02-06 06:25 | CA_ITS ---
APPROVED REPORT EXAM: Comprehensive 2D, Doppler, and color-flow Echocardiogram Site Technician: Alma Rosa Ott RT(R) Ht: 5 ft 1 in Wt: 113lbs BSA: 1.48 BP: 170/90 mmHg Indications: CP, smoking, HTN, SOB, PAGAN, Hyperlipidemia, family history of HD, CAD, Abn EKG 2D Dimensions LVOT 1.91 cm (M/F) 1.5-2.5 M-Mode Dimensions RVDd 2.34 cm (0.9-2.6) LVDd 4.32 cm (3.5-5.7) LVDs 3.21 cm (3.5-5.7) IVSd 1.00 cm (0.6-1.1) PWd 0.87 cm (0.6-1.1) EF (Teich) 50.80% FS 25.70% EDV (Teich) 84.00 mL ESV (Teich) 41.30 mL LV Diastology E/A Ratio 1.07 Mitral Valve MV A Velocity 117.00 (40-130 cm/s) Left Ventricle Left atrium is mildly enlarged, left ventricle is normal size, mild concentric left ventricular hypertrophy, visually estimated ejection fraction 55% with no regional wall motion abnormality. Grade 1 diastolic dysfunction seen without tissue Doppler evidence of raise left atrial pressure. Right Ventricle Right atrium and right ventricular normal size and contractility. Aortic Valve Aortic valve is minimally thickened and fibrosed, there is no aortic stenosis or aortic insufficiency. Mitral Valve Mitral valve is grossly normal, there is mild mitral regurgitation. Tricuspid Valve Tricuspid valve is grossly normal, there is mild tricuspid regurgitation, tricuspid regurgitation jet velocity is inadequate for calculation of the right ventricular systolic pressure. Pulmonic Valve Pulmonic valve is poorly visualized. Great Vessels Aortic root is normal size. Pericardium No significant pericardial effusion noted. Conclusion 1. Mildly enlarged left atrium, normal left ventricular size, mild concentric left ventricular hypertrophy, visually estimated ejection fraction 55% with no regional wall motion abnormality, grade 1 diastolic dysfunction seen without tissue Doppler evidence of raise left atrial pressure. 2. Mild mitral and tricuspid regurgitation. 3. No significant pericardial effusion noted. Electronically signed by : Michael Buck, 02/08/2020 11:13:51
--- NOTE | 2020-02-06 06:25 | CA_ITS ---
APPROVED REPORT Chief Science Officer: CT Laterality: Bilateral Indications: numbness Risk Factors Hypertension: Hyperlipidemia Smoking Doppler Spectral Velocity Analysis ECA (R) 50.50/12.00 cm/s ECA (L) 46.60/10.70 cm/s dICA (R) 92.80/31.40 cm/s dICA (L) 77.70/23.10 cm/s Ronan (R) 92.80/36.70 cm/s Ronan (L) 77.80/36.70 cm/s pICA (R) 63.60/26.30 cm/s pICA (L) 66.60/26.90 cm/s dCCA (R) 41.90/14.10 cm/s dCCA (L) 73.30/21.00 cm/s pCCA (R) 70.30/14.60 cm/s pCCA (L) 77.80/19.50 cm/s Vert (R) 44.50/13.70 cm/s Vert (L) 71.80/24.70 cm/s ICA/CCA 2.20 ICA/CCA 1.60 Conclusion Duplex evaluation demonstrates stenosis of the right proximal internal carotid artery in the range of 20-49% with PSV <140 cm/sec, EDV <100 cm/sec, and IC/CC Ratio <4.0, lower end of scale. Duplex evaluation demonstrates stenosis of the left proximal internal carotid artery in the range of 20-49% with PSV <140 cm/sec, EDV <100 cm/sec, and IC/CC Ratio <4.0, lower end of scale. Duplex evaluation demonstrates antegrade flow of the bilateral Vertebral Arteries. Electronically signed by : Shaq Toribio MD 02/06/2020 14:29:42
--- NOTE | 2020-02-06 06:59 | HMH.ITSHM ---
Current Home Medications as stated by this patient Christy Guy or associate financial representative. []PANTOPRAZOLE MONTELUKAST LISINOPRIL CLOPIDOGREL ATORVASTATIN ASA AMLODIPINE NITRO
== END ==
PROVIDERS: PCP Family Medicine; Visit Provider Nurse Practitioner Family
DX: I25.10 Atherosclerotic heart disease of native coronary artery without angina pectoris (principal); R20.0 Anesthesia of skin; R20.2 Paresthesia of skin; I65.23 Occlusion and stenosis of bilateral carotid arteries
CPT/HCPCS: 78452; 93017; 93306; 93880; A9502; J2785

== ENCOUNTER 2020-02-21 08:23 | Day surgery (SDC) | payer MEDICARE, SELFPAY ==
[2020-02-21] VITALS (12 sets, daily range): BP systolic 97–123; BP diastolic 48–70; PULSE 60; RESP 16–20; TEMP 36.8; O2SAT 93–100; BMI 21.1
--- NOTE | 2020-02-21 | IR_ITS ---
APPROVED REPORT Patient Location: Outpatient Key Account Coordinator: ZULEYKA Campos RT (R) PROCEDURES Right radial arterial access Left heart catheterization Left ventriculogram Selective coronary angiogram Catheter placement in the right brachial artery Right brachial artery retrograde angiogram Right femoral arterial access Catheter placement in the right brachial artery Right brachial artery antegrade angiogram Drug-eluting stent deployment to the mid and distal LAD in a contiguous manner INDICATION Coronary artery disease, High risk abnormal Myoview, In-stent restenosis, Right brachial artery extravasation/atherosclerosis Informed consent was obtained prior to the procedure. COMPLICATIONS See below Estimated Blood Loss: LESS THAN 10 ML TECHNIQUE One percent lidocaine used to anesthetize the right anterior aspect of the wrist. The right radial artery was accessed via the Seldinger technique. A 6 Fijian sheath was placed in the right radial artery. 2.5 mg of verapamil, 800 mcg of nitroglycerin, 1mg Lidocaine and 5000 U Heparin were given through the arterial sheath. The trap catheter was used to perform left heart catheterization left ventriculogram and selective coronary angiogram. The ACT measured 309 seconds therefore a 6 Fijian JL 3 guide catheter was attempted passage in the right brachial artery however there was spasm. Because of this along hydrophilic sheath was then exchanged for the short sheath along with 800 mcg of intra-arterial nitroglycerin in the right radial artery. The long sheath was advanced into the brachial artery. The JL 3 guide catheter was then passed in a retrograde manner into the brachial artery however there was resistance. Angiography demonstrated there was a small amount of extravasation in the brachial artery. Because of this the apparatus was removed and the sheath was removed with good hemostasis being achieved using TR banding. 1% lidocaine was used to anesthetize the right groin and the right femoral artery was accessed via the Salinger technique. A 4 Fijian JR4 catheter was placed in the right brachial artery and antegrade angiography was performed which demonstrated wide patency of the brachial artery with no ongoing extravasation with patency of the radial and ulnar arteries. At this point an EBU 3 guide catheter was used to intubate the left main artery and a Choice PT extra-support wire was placed distally. Primary stenting could not be performed therefore a 2 mm x 20 mm balloon was deployed at 12 kalpesh to predilate. Following this a 2 mm x 18 mm resolute lianna stent was deployed distally at 12 kalpesh. An additional 2.5 x 34 mm resolute lianna stent was employed in the midportion extending into the first stent still overlapping the proximal portion and deployed at 16 kalpesh. There is haziness distal to the first stent therefore an additional 2 mm x 12 mm resolute lianna stent was then placed distal to the first stent that was placed yet still overlapping the distal aspect and deployed at 12 kalpesh. Angiography demonstrated wide patency of the stents with excellent antegrade flow down the vessel. SP II flow was present at the beginning of the procedure with SP-3 flow at the end of the procedure ANGIOGRAPHIC RESULTS The left main artery Normal The left anterior descending artery Is proximally normal then has a mid vessel 40% stenosis followed by a 90% focal in-stent restenotic lesion followed by greater than 90% diffuse in-stent restenosis in the distal portion. Distally the LAD tapers and does hit the apex The circumflex artery Is a large nondominant vessel and has mild proximal 10% atheromatous plaque followed by 30 to 40% stenosis in the proximal terminal obt
[2020-02-21 08:53] LABS: Basophils % 0.4 % (0.1-2.0); Eosinophils # 0.2 K/mm3 (0.0-0.4); Hematocrit 37.2 % (37.0-47.0); Hemoglobin 11.4 g/dL (12.2-16.2); Lymphocytes # 3.1 K/mm3 (0.7-4.5); Lymphocytes % 31.3 % (10-50); Mean Corpuscular HGB Conc 30.7 g/dL (31.8-35.4); Mean Corpuscular Hemoglobin 24.8 pg (27.0-31.2); Mean Corpuscular Volume 80.6 fl (81-99); Mean Platelet Volume 7.8 fl (7.4-10.4); Monocytes # 0.5 K/mm3 (0.1-1.0); Monocytes % 5.5 % (1.7-9.3); Neutrophils % 60.8 % (37.0-80.0); Platelet Count 265 K/mm3 (142-424); Red Blood Count 4.62 M/mm3 (4.20-5.40); Red Cell Distribution Width 17.8 % (11.5-17.5); White Blood Count 9.8 K/mm3 (4.8-10.8)
[2020-02-21 09:04] LABS: Anion Gap 10.5 mEq/L (5-15); Blood Urea Nitrogen 16 mg/dl (7-17); Calcium 9.4 mg/dl (8.4-10.2); Carbon Dioxide 29 mmol/L (22.0-30.0); Chloride 103 mmol/L (98-107); Creatinine Clearance Estimated 44 mL/min (50-200); Estimated Glomerular Filt Rate 100 ml/min (>60); GFR (African American) 121 ML/MIN (>60); Glucose 91 mg/dl (74-100); Potassium 3.5 mmoL/L (3.5-5.1); Sodium 139 mmol/L (136-145)
[2020-02-21 11:18] LABS: CATHL Activated Clotting Time 309 SEC (74-125)
--- NOTE | 2020-02-21 12:03 | HMH.PHACLD ---
Christy Guy has received discharge medication counseling on the following medications: CONTINUE MEDICATIONS: LISINOPRIL, LIPITOR, ASPIRIN, PLAVIX PATIENT WILL NOT BE STARTING A BETA-RAEANN DUE TO LOW BLOOD PRESSURE PER DR PRATT. DOCUMENTED ON CHECKLIST.
== END 2020-02-21 14:49 | disposition home or self-care (01) ==
LOC: CATHLAB 08:24
PROVIDERS: PCP Family Medicine; Visit Provider Internal Medicine
DX: T82.855A Stenosis of coronary artery stent, initial encounter (principal); I25.118 Atherosclerotic heart disease of native coronary artery with other forms of angina pectoris; I42.9 Cardiomyopathy, unspecified; Z95.0 Presence of cardiac pacemaker; Z72.0 Tobacco use; I11.0 Hypertensive heart disease with heart failure; I50.30 Unspecified diastolic (congestive) heart failure; I27.20 Pulmonary hypertension, unspecified; I25.2 Old myocardial infarction; Z79.899 Other long term (current) drug therapy; I77.1 Stricture of artery; I70.298 Other atherosclerosis of native arteries of extremities, other extremity
CPT/HCPCS: 75710; 80048; 85025; 85347; 92928; 93458; 99152; 99153; C1725; C1760; C1769; C1876; C9600; J1644; Q9967

== ENCOUNTER → 2020-02-25 12:22 | Outpatient (CLI) | payer MEDICARE, SELFPAY ==
--- NOTE | 2020-02-25 12:23 | CA_ITS ---
APPROVED REPORT Laterality: Unilateral right Grain Drier: Alma Rosa Ott RT(R) Symptoms Current Smoker CAD Risk Factors Hypertension: Hyperlipidemia Smoking: CAD Comments Patient had left heart cath on 02/21/20 with right radial access. Patient presents today with extensive brusing in the right upper extremity. It begins at the wrist and extends to the axillary region. Patient states it is extremely sore with little to no improvement. Findings Right radial artery and brachial artery negative for pseudoaneurysm and AV fistula. Conclusion Right radial artery and brachial artery negative for pseudoaneurysm and AV fistula. Electronically signed by : Shaq Toribio MD 02/25/2020 17:24:22
== END ==
PROVIDERS: PCP Family Medicine; Visit Provider Urology
DX: I72.9 Aneurysm of unspecified site (principal); I77.0 Arteriovenous fistula, acquired; R60.9 Edema, unspecified; S60.219A Contusion of unspecified wrist, initial encounter
CPT/HCPCS: 93931

== ENCOUNTER → 2020-02-27 08:01 | Outpatient (CLI) | payer MEDICARE, SELFPAY ==
[2020-02-27 08:21] LABS: Basophils # 0.1 K/mm3 (0-0.2); Basophils % 0.6 % (0.1-2.0); Eosinophils # 0.2 K/mm3 (0.0-0.4); Eosinophils % 2.6 % (0.1-12.0); Hematocrit 31.1 % (37.0-47.0); Hemoglobin 9.5 g/dL (12.2-16.2); Lymphocytes % 33.4 % (10-50); Mean Corpuscular HGB Conc 30.5 g/dL (31.8-35.4); Mean Corpuscular Hemoglobin 24.8 pg (27.0-31.2); Mean Corpuscular Volume 81.3 fl (81-99); Mean Platelet Volume 7.6 fl (7.4-10.4); Monocytes # 0.5 K/mm3 (0.1-1.0); Monocytes % 5.1 % (1.7-9.3); Neutrophils # 5.2 K/mm3 (1.8-7.8); Neutrophils % 58.2 % (37.0-80.0); Platelet Count 247 K/mm3 (142-424); Red Blood Count 3.83 M/mm3 (4.20-5.40); Red Cell Distribution Width 18.3 % (11.5-17.5); White Blood Count 8.8 K/mm3 (4.8-10.8)
[2020-02-27 08:23] LABS: Chloride 107 mmol/L (98-107); Sodium 139 mmol/L (136-145)
[2020-02-27 08:26] LABS: Blood Urea Nitrogen 19 mg/dl (7-17); Estimated Glomerular Filt Rate 83 ml/min (>60); GFR (African American) 101 ML/MIN (>60)
[2020-02-27 08:27] LABS: Calcium 8.6 mg/dl (8.4-10.2); Carbon Dioxide 26 mmol/L (22.0-30.0); Glucose 92 mg/dl (74-100)
== END ==
PROVIDERS: Visit Provider Internal Medicine
DX: I25.118 Atherosclerotic heart disease of native coronary artery with other forms of angina pectoris (principal)
CPT/HCPCS: 36415; 80048; 85025

== ENCOUNTER 2020-03-03 12:40 | Outpatient (RCR) | payer MEDICARE, SELFPAY | END 2020-04-28 13:35 | disposition home or self-care (01) | LOC: PT 12:40 | PROVIDERS: Visit Provider Urology | DX: I25.118 Atherosclerotic heart disease of native coronary artery with other forms of angina pectoris (principal) | CPT/HCPCS: 93798 ==

== ENCOUNTER → 2020-03-04 07:38 | Outpatient (CLI) | payer MEDICARE, SELFPAY ==
[2020-03-04 08:07] LABS: Basophils # 0.1 K/mm3 (0-0.2); Basophils % 1.4 % (0.1-2.0); Eosinophils # 0.2 K/mm3 (0.0-0.4); Eosinophils % 2.6 % (0.1-12.0); Hematocrit 34.4 % (37.0-47.0); Hemoglobin 10.4 g/dL (12.2-16.2); Lymphocytes # 2.8 K/mm3 (0.7-4.5); Lymphocytes % 41.9 % (10-50); Mean Corpuscular HGB Conc 30.3 g/dL (31.8-35.4); Mean Corpuscular Hemoglobin 25.5 pg (27.0-31.2); Mean Corpuscular Volume 84.2 fl (81-99); Mean Platelet Volume 7.2 fl (7.4-10.4); Monocytes # 0.4 K/mm3 (0.1-1.0); Monocytes % 6.2 % (1.7-9.3); Neutrophils # 3.2 K/mm3 (1.8-7.8); Neutrophils % 47.9 % (37.0-80.0); Platelet Count 320 K/mm3 (142-424); Red Blood Count 4.09 M/mm3 (4.20-5.40); Red Cell Distribution Width 19.1 % (11.5-17.5); White Blood Count 6.6 K/mm3 (4.8-10.8)
== END ==
PROVIDERS: Visit Provider Urology
DX: E78.2 Mixed hyperlipidemia (principal); F17.209 Nicotine dependence, unspecified, with unspecified nicotine-induced disorders; I10 Essential (primary) hypertension; I25.118 Atherosclerotic heart disease of native coronary artery with other forms of angina pectoris; Z95.0 Presence of cardiac pacemaker
CPT/HCPCS: 36415; 85025

== ENCOUNTER 2020-11-20 17:06 | Emergency (ER) | payer MEDICARE, SELFPAY ==
[2020-11-20 17:07] VITALS: BP 130/61; PULSE 61; RESP 18; TEMP 36.2; O2SAT 98; BMI 21.5
--- NOTE | 2020-11-20 17:42 | HMH.EDUTC ---
[facility] Disposition Clinical Impression: Viral syndrome, Bronchitis COPD (chronic obstructive pulmonary disease) Qualifiers: COPD type: unspecified COPD Qualified Code(s): J44.9 - Chronic obstructive pulmonary disease, unspecified Disposition: Home, Self-Care Condition on Discharge: Good Instructions: DI for COVID-19 (Suspected or Confirmed ), Preventing the Spread of Coronavirus Discharge Instructions Additional Instructions: Use the drops as directed. Take the antibiotics as directed. Follow up with her regular doctor if she is not getting better. GO TO THE ER FOR ANY WORSENING SYMPTOMS OR CONCERNS Prescriptions: Benzonatate [Tessalon Perle 100mg Cap] 100 mg PO TIDP PRN #30 cap PRN Reason: Cough Transmission Status: Received by [facility] Azithromycin [Z-Jabier 250mg Tab*] 250 mg PO UD DOSE PK #6 tab Transmission Status: Received by [facility] Referrals: Maurice Holden MD [Primary Care Provider] - Time of Disposition: 17:51 Medical Decision Making - Medical Records Medical records reviewed: No: I reviewed the patient's medical records. - Tomasz Inquiry Pt receiving controlled substance: No Vital Signs: 11/20/20 17:07 11/20/20 17:58 Temperature 97.1 F L 97.1 F L Temperature Source Oral Oral Pulse Rate 61 Pulse Rate [Right] 61 Respiratory Rate 18 18 Blood Pressure 130/61 Blood Pressure [Right Arm] 130/61 Blood Pressure Mean [Right Arm] 84 Blood Pressure Position [Right Arm] Supine 02 Sat by Pulse Oximetry 98 [facility] HPI - General Stated complaint: cov test Time Seen by Provider: 11/20/20 17:42 Description of Symptoms (Recalled from Triage Doc. by RN): pt request COVID test pt c/o of body aches HEENT Symptoms (Recalled from RN notes): No Resp Symptoms (Recalled from RN notes): No Skin Symptoms (Recalled from RN notes): No MS Symptoms (Recalled from RN notes): No Functional Status (Recalled from RN notes): wnl - History of Present Illness Provider Complaint: She states that she has been having body aches and a productive cough since last night. She denies documented fever. Her tested positive for covid earlier today. - Related Data Home Medications Medication Instructions Recorded Confirmed Nitroglycerin [Nitrostat 0.4mg SL 0.4 mg SL Q5MINP PRN 01/11/18 07/09/20 Tablet] montelukast 10 mg tablet 10 mg PO HS PRN tab 10/08/20 Previous Rx's Medication Instructions Recorded aspirin 81 mg tablet,delayed 81 mg PO DAILY #90 tab 09/05/18 release atorvastatin 40 mg tablet 40 mg PO DAILY #90 tab 09/05/18 pantoprazole 40 mg tablet,delayed 40 mg PO DAILY #30 tab 01/12/19 release lisinopril 20 1 tab PO DAILY #90 tab 02/18/20 mg-hydrochlorothiazide 12.5 mg tablet clopidogrel 75 mg tablet 75 mg PO DAILY #90 tab 02/27/20 amlodipine 10 mg tablet 10 mg PO DAILY #90 tab 04/21/20 bisoprolol fumarate 5 mg tablet 5 mg PO QDAY #30 tab 10/08/20 Azithromycin [Z-Jabier 250mg Tab*] 250 mg PO UD DOSE PK #6 tab 11/20/20 Benzonatate [Tessalon Perle 100mg 100 mg PO TIDP PRN #30 cap 11/20/20 Cap] Allergies Allergy/AdvReac Type Severity Reaction Status Date / Time No Known Allergies Allergy Verified 11/20/20 17:28 - Worker's Comp Is this a Worker's Comp case?: No Is this an [facility] Worker's Comp?: No Is this a [facility] Worker's Comp?: No H History - Hepatitis A Screen Drug use history?: No High risk sexual behaviors?: No History of sexually transmitted infection?: No Currently employed?: No Childcare worker?: No Do you have indoor plumbing?: Yes Do you have electricity?: Yes Attestation statement:: This patient has been screened for Hepatitis A risk factors. I have reviewed the patient's past medical history: Yes 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: Reports:: Cancer, Coronary Artery Disease, Gastroesophageal Reflux Disease(GERD), Hyperlipidemia, Hypertension, Internal Pacemaker, Myocardial Infarction Denies:: Diabetes Mellitus Type 1, Diabetes Mellitus Type
[2020-11-20 17:58] VITALS: BP 130/61; PULSE 61; RESP 18; TEMP 36.2; O2SAT 98
--- NOTE | 2020-11-21 10:29 | PC.NURSE ---
PATIENT NOTIFIED OF POSITIVE COVID TEST AT THIS TIME
== END 2020-11-20 17:59 | disposition home or self-care (01) ==
PROVIDERS: Emergency Provider Nurse Practitioner Family; PCP Family Medicine
DX: U07.1 COVID-19 (principal); J44.9 Chronic obstructive pulmonary disease, unspecified; I25.10 Atherosclerotic heart disease of native coronary artery without angina pectoris; K21.9 Gastro-esophageal reflux disease without esophagitis; E78.5 Hyperlipidemia, unspecified; I10 Essential (primary) hypertension; I25.2 Old myocardial infarction; Z95.0 Presence of cardiac pacemaker; F17.210 Nicotine dependence, cigarettes, uncomplicated; Z79.899 Other long term (current) drug therapy
CPT/HCPCS: G0463; 99202; U0003

== ENCOUNTER 2020-12-02 09:14 | Emergency (ER) | payer MEDICARE, SELFPAY ==
[2020-12-02 09:25] VITALS: BP 131/68; PULSE 78; RESP 18; TEMP 36.6; O2SAT 98; BMI 21.7
--- NOTE | 2020-12-02 10:04 | HMH.EDUTC ---
[facility] [place] [facility] [place] Clinical Impression: Encounter for laboratory testing for COVID-19 virus Disposition: Home, Self-Care Condition on Discharge: Good Instructions: DI for COVID-19 (Suspected or Confirmed ), Coronavirus Disease 2019, Preventing the Spread of Coronavirus Discharge Instructions Additional Instructions: *Monitor Temp, Over the counter Motrin or Tylenol as directed/as needed Tylenol every 4 hours and Motrin every 6 hours (as long as your family doctor has told you that you can take it) for fever or pain. and straight to ER if unable to lower temp less than 101.0 after medication given Follow up IMMEDIATELY for new or worsening symptoms or no Noticeable improvement over the next 48-72 hours. 911 for difficulty breathing or swallowing You were tested for today for COVID19 your test result should be back in the next 24-48 hours, you may call to the [facility] to see if your test results are back in the next 48 hours [phone] [facility] hours are 9am-9pm You was given a handout with instructions for Self Quarantine and Self isolation for while you wait on test results and what to do if they are positive If you are positive the Health Dept will be contacting you also Referrals: Maurice Holden MD [Primary Care Provider] - As needed Time of Disposition: 10:09 Medical Decision Making - Tomasz Inquiry Pt receiving controlled substance: No Tomasz was queried for this patient: No Vital Signs: 12/02/20 09:25 Temperature 97.8 F Temperature Source Oral Pulse Rate [Right Brachial] 78 Respiratory Rate 18 Blood Pressure [Right Arm] 131/68 Blood Pressure Mean [Right Arm] 89 Blood Pressure Source [Right Arm] Automatic Cuff Blood Pressure Position [Right Arm] Sitting 02 Sat by Pulse Oximetry 98 Oxygen Delivery Method Room Air Orders (Tests/Meds): ORDERS Category Date Time Status Covid-19 Nasal PCR Sendout P&C Stat Lab 12/02/20 09:20 Ordered [facility] [place] [facility] [place] - General Stated complaint: Covid test Time Seen by Provider: 12/02/20 10:04 Mode of Arrival: Ambulatory Source of Information: Patient Limitations: No Limitations Description of Symptoms (Recalled from Triage Doc. by RN): PATIENT TEST POSITIVE 11/13, WANTS RE-TESTED HEENT Symptoms (Recalled from RN notes): No Resp Symptoms (Recalled from RN notes): No Skin Symptoms (Recalled from RN notes): No MS Symptoms (Recalled from RN notes): No Functional Status (Recalled from RN notes): WNL - History of Present Illness Provider Complaint: Patient states that she tested positive for COVID on 11/13 States that her daughter lives with her and wanted her to come in and get retested to see if she is still showing positive Denies any symptoms at this time - Related Data Home Medications Medication Instructions Recorded Confirmed Nitroglycerin [Nitrostat 0.4mg SL 0.4 mg SL Q5MINP PRN 01/11/18 07/09/20 Tablet] montelukast 10 mg tablet 10 mg PO HS PRN tab 10/08/20 Previous Rx's Medication Instructions Recorded aspirin 81 mg tablet,delayed 81 mg PO DAILY #90 tab 09/05/18 release atorvastatin 40 mg tablet 40 mg PO DAILY #90 tab 09/05/18 pantoprazole 40 mg tablet,delayed 40 mg PO DAILY #30 tab 01/12/19 release lisinopril 20 1 tab PO DAILY #90 tab 02/18/20 mg-hydrochlorothiazide 12.5 mg tablet clopidogrel 75 mg tablet 75 mg PO DAILY #90 tab 02/27/20 amlodipine 10 mg tablet 10 mg PO DAILY #90 tab 04/21/20 bisoprolol fumarate 5 mg tablet 5 mg PO QDAY #30 tab 10/08/20 Azithromycin [Z-Jabier 250mg Tab*] 250 mg PO UD DOSE PK #6 tab 11/20/20 Benzonatate [Tessalon Perle 100mg 100 mg PO TIDP PRN #30 cap 11/20/20 Cap] Allergies Allergy/AdvReac Type Severity Reaction Status Date / Time No Known Allergies Allergy Verified 11/20/20 17:28 - Worker's Comp Is this a Worker's Comp case?: No [facility] History - Hepatitis A Screen Drug use history?: No High risk sexual behaviors?: No History of sexually transmitted infection?: No Currently employed?: No Child
[2020-12-02 10:14] VITALS: BP 131/68; PULSE 78; RESP 18; TEMP 36.6; O2SAT 98
[2020-12-03 08:35] LABS: Covid-19 Nasal PCR Sendout P&C NEGATIVE
== END 2020-12-02 10:17 | disposition home or self-care (01) ==
PROVIDERS: Emergency Provider Nurse Practitioner; PCP Family Medicine
DX: Z86.16 Personal history of COVID-19 (principal); K21.9 Gastro-esophageal reflux disease without esophagitis; E78.5 Hyperlipidemia, unspecified; I10 Essential (primary) hypertension; I25.10 Atherosclerotic heart disease of native coronary artery without angina pectoris; Z95.0 Presence of cardiac pacemaker; I25.2 Old myocardial infarction; F17.210 Nicotine dependence, cigarettes, uncomplicated; Z79.899 Other long term (current) drug therapy
CPT/HCPCS: G0463; 99202; U0004

== ENCOUNTER → 2021-04-01 10:57 | Outpatient (CLI) | payer MEDICARE, SELFPAY ==
--- NOTE | 2021-04-01 10:59 | CA_ITS ---
APPROVED REPORT Telesales Supervisor: ANA CRISTINA Laterality: Bilateral Study Quality: Excellent Indications: AMAYA Risk Factors Hypertension: Hyperlipidemia Smoking Doppler Spectral Velocity Analysis ECA (R) 77.80/13.50 cm/s ECA (L) 73.70/12.60 cm/s dICA (R) 80.80/21.00 cm/s dICA (L) 68.50/21.10 cm/s Ronan (R) 100.30/23.90 cm/s Ronan (L) 77.70/24.40 cm/s pICA (R) 72.60/18.70 cm/s pICA (L) 61.20/20.80 cm/s dCCA (R) 69.60/19.50 cm/s dCCA (L) 56.60/14.60 cm/s pCCA (L) 79.60/16.50 cm/s Vert (R) 56.60/14.00 cm/s ICA/CCA 1.44 Vert (L) 51.60/15.70 cm/s ICA/CCA 1.37 Findings Duplex evaluation demonstrates stenosis of the right proximal internal carotid artery in the range of 20-49% with PSV <140 cm/sec, EDV <100 cm/sec, and IC/CC Ratio <4.0. Duplex evaluation demonstrates antegrade flow of the bilateral Vertebral Arteries. Duplex evaluation demonstrates stenosis of the left proximal internal carotid artery in the range of 20-49% with PSV <140 cm/sec, EDV <100 cm/sec, and IC/CC Ratio <4.0. Conclusion Duplex evaluation demonstrates stenosis of the right proximal internal carotid artery in the range of 20-49%. Duplex evaluation demonstrates antegrade flow of the bilateral Vertebral Arteries. Duplex evaluation demonstrates stenosis of the left proximal internal carotid artery in the range of 20-49%. Electronically signed by : Shaq Toribio MD 04/01/2021 16:17:51
== END ==
PROVIDERS: PCP Internal Medicine; Visit Provider Urology
DX: I65.23 Occlusion and stenosis of bilateral carotid arteries (principal)
CPT/HCPCS: 93880

== ENCOUNTER → 2021-08-24 10:00 | Outpatient (CLI) | payer MEDICARE, SELFPAY ==
--- NOTE | 2021-08-24 10:06 | XR_ITS ---
PROCEDURE: XR CHEST 2V CLINICAL HISTORY: pain around PPM COMPARISON: CT WORKSHEET from 11/02/2015 CR CXR CHEST(2 VIEWS-NOT PORTABLE) from 11/13/2016 CR CXR2V XR chest 2V from 01/11/2018 CR CXR1VP XR chest portable from 09/15/2018 FINDINGS: Normal heart size. Left subclavian bipolar pacemaker is in place. The leads appear intact. Coronary artery stent and or calcification noted. Surgical clips are present projecting over the left mid chest region not significantly changed. The lungs are clear without infiltrates, suspicious nodules, or pleural effusions. No acute bony abnormalities. IMPRESSION: No change with no acute findings Dictated by: hSaq Toribio MD 08/25/2021 07:27 Shaq Toribio MD in [place] 08/25/2021 07:27
== END ==
PROVIDERS: PCP Nurse Practitioner Family; Visit Provider Urology
DX: R07.9 Chest pain, unspecified (principal)
CPT/HCPCS: 71046

== ENCOUNTER → 2022-09-09 12:40 | Outpatient (CLI) | payer MEDICARE, SELFPAY ==
--- NOTE | 2022-09-09 12:41 | CA_ITS ---
APPROVED REPORT EXAM: Comprehensive 2D, Doppler, and color-flow Echocardiogram Abalone Diver: Tamar Medrano CRT Ht: 5 ft 1 in Wt: 109lbs BSA: 1.46 BP: 123/65 mmHg Indications: Abnormal ECG, COPD, Shortness of Breath, Cardiomyopathy, Hypertension/HDD, pacer, phtn, smoker 2D Dimensions LVOT 1.74 cm (M/F) 1.5-2.5 LA Volume 24.20 mL LA Volume Index 16.60 mL/m2 (M/F) 16-34 M-Mode Dimensions RVDd 2.59 cm (0.9-2.6) LA Diam 2.91 cm (1.9-4.0) LVDd 4.98 cm (3.5-5.7) Ao Diam 3.75 cm (2.0-3.7) LVDs 3.03 cm (3.5-5.7) IVSd 1.08 cm (0.6-1.1) PWd 0.91 cm (0.6-1.1) EF (Teich) 69.30% FS 39.20% EDV (Teich) 117.10 mL TAPSE 1.61 (<1.7) ESV (Teich) 35.90 mL LV Diastology E Decel Time 440.00 (160-240 msec) E/A Ratio 0.65 MED E' 4.30 (< 7 cm/sec) MED A' 10.40 cm/s E'/MED E' Ratio 12.53 (>14) LAT E' 8.30 (<10 cm/sec) LAT A' 18.20 cm/s E/LAT E' Ratio 6.49 (>14) Aortic Valve AI PHT 548.00 ms AO Peak GR. 10.00 mmHg Mitral Valve MV A Velocity 83.00 (40-130 cm/s) E/A Ratio 0.65 MV Decel. Time 440.00 (160-240 ms) Pulmonary Valve PV Peak Velocity 134.00 (50-150 cm/s) Tricuspid Valve TR P. Velocity 286.00 cm/s RAP Estimate 10.00 mmHg RVSP 42.70 mmHg Left Ventricle Left atrium is mildly enlarged, left ventricle is normal size mild concentric left ventricular hypertrophy, estimated ejection fraction 50% with no regional wall motion abnormality, grade 1 diastolic dysfunction seen without tissue Doppler evidence of raise left atrial pressure. Right Ventricle Right atrium and right ventricle is mildly enlarged with normal contractility, pacemaker leads in the right atrium and right ventricle. Aortic Valve Aortic valve is minimally thickened and fibrosed there is no aortic stenosis, there is mild aortic insufficiency. Mitral Valve Mitral valve leaflets are minimally thickened, there is no mitral stenosis there is mild mitral regurgitation. Tricuspid Valve Tricuspid valve grossly normal, there is mild tricuspid regurgitation, tricuspid regurgitation jet velocity is inadequate for calculation of the right ventricular systolic pressure. Pulmonic Valve Pulmonic valve is poorly visualized. Great Vessels Aortic root is normal size. Inferior vena cava is poorly visualized. Pericardium No significant pericardial effusion noted. Conclusion 1. Mild biatrial enlargement, normal left ventricular size, mild concentric left ventricular hypertrophy, estimated ejection fraction 50% with no regional wall motion abnormality, grade 1 diastolic dysfunction seen without tissue Doppler evidence of raise left atrial pressure. 2. Mildly enlarged right ventricle with normal contractility. 3. Mild aortic, mitral and tricuspid regurgitation. 4. No significant pericardial effusion noted. 5. Inferior vena cava is poorly visualized. Electronically signed by : Michael Buck MD 09/10/2022 13:56:06
--- NOTE | 2022-09-09 14:47 | XR_ITS ---
FINAL REPORT CLINICAL HISTORY: dyspnea COMPARISON: 08/24/2021 FINDINGS: Two views of the chest were obtained. A left subclavian pacemaker is present. There are postoperative changes in the left thorax. The heart size and pulmonary vascularity are within normal limits. The mediastinum is normal. No acute pulmonary abnormality is identified. There is no pneumothorax. The bony thorax is intact. IMPRESSION: No active cardiopulmonary disease. Reviewed, Interpreted and Dictated by Hudson Pinzon III, MD Transcribed by Keisha Miller Authenticated and [facility]
== END ==
PROVIDERS: PCP Nurse Practitioner Family; Visit Provider Internal Medicine
DX: E78.2 Mixed hyperlipidemia (principal); F17.209 Nicotine dependence, unspecified, with unspecified nicotine-induced disorders; I10 Essential (primary) hypertension; I25.10 Atherosclerotic heart disease of native coronary artery without angina pectoris; I25.2 Old myocardial infarction; I27.20 Pulmonary hypertension, unspecified; I42.9 Cardiomyopathy, unspecified; I65.23 Occlusion and stenosis of bilateral carotid arteries; J44.9 Chronic obstructive pulmonary disease, unspecified; R06.02 Shortness of breath; R94.31 Abnormal electrocardiogram [ECG] [EKG]; Z95.0 Presence of cardiac pacemaker
CPT/HCPCS: 71046; 93306; 94060; 94726; 94729

== ENCOUNTER 2022-10-28 08:02 | Emergency (ER) | payer MEDICARE, SELFPAY ==
[2022-10-28 08:20] VITALS: BP 143/77; PULSE 60; RESP 20; TEMP 36.9; O2SAT 98; BMI 18.9
--- NOTE | 2022-10-28 09:00 | EXP.UTC ---
Discharge Plan Disposition Patient Disposition: Home, Self-Care Condition: Good Prescriptions Prescriptions: No Action clopidogrel 75 mg tablet 75 mg PO DAILY Qty: 90 3RF montelukast 10 mg tablet 10 mg PO HS PRN (Reason: Breathing problems) albuterol sulfate 90 mcg/actuation HFA aerosol inhaler 1 inh INHALATION QID PRN cetirizine [Allergy Relief (cetirizine)] 10 mg tablet 10 mg PO DAILY PRN ascorbate calcium (vitamin C) 500 mg tablet 500 mg PO DAILY budesonide-formoterol [Symbicort] 160-4.5 mcg/actuation HFA aerosol inhaler 1 inh inhalation BID aspirin 81 mg tablet,delayed release (DR/EC) 81 mg PO DAILY Qty: 90 4RF pantoprazole 40 mg tablet,delayed release (DR/EC) 40 mg PO DAILY Qty: 30 5RF atorvastatin 40 mg tablet See Rx Instructions .ROUTE .COMPLEX Qty: 90 3RF Dose Instruction: TAKE ONE TABLET BY MOUTH EVERY DAY FOR cholesterol Rx Instructions: TAKE ONE TABLET BY MOUTH EVERY DAY FOR cholesterol lisinopril-hydrochlorothiazide 20-12.5 mg tablet See Rx Instructions .ROUTE .COMPLEX Qty: 90 3RF Dose Instruction: TAKE ONE TABLET BY MOUTH EVERY DAY Rx Instructions: TAKE ONE TABLET BY MOUTH EVERY DAY amlodipine [Norvasc] 5 mg tablet 5 mg PO DAILY Qty: 90 3RF bisoprolol fumarate 5 mg tablet See Rx Instructions .ROUTE .COMPLEX Qty: 30 5RF Dose Instruction: TAKE ONE TABLET BY MOUTH EVERY DAY Rx Instructions: TAKE ONE TABLET BY MOUTH EVERY DAY nitroglycerin 0.4 MG tablet, sublingual 0.4 mg sublingual Q5MINP PRN (Reason: Chest Pain) Referrals Follow up/Referrals: Laura Purcell APRN [Primary Care Provider] - See instructions Activity Restrictions/Add. Instructions Additional Instructions/Restrictions: Drink plenty of fluids. Take tylenol for pain or fever. By the CDC guidelines, you are not considered contageous 24 hours after you stop running a fever. So, you are not contagious now. You are no longer on quarantine. You should continue to wear a face mask around other people for the next 5 days though. Follow up with your regular doctor. GO TO THE ER FOR ANY WORSENING SYMPTOMS Clinical Impressions Clinical Impression: COVID-19 Instructions Patient Instructions: Coronavirus Disease 2019, Preventing the Spread of Coronavirus Discharge Instructions Discharge ED Provider: Manny Love [facility] General Stated complaint: Covid test, Covid+ 10/25 Mode of Arrival: Ambulatory Source of Information: Patient Limitations: No Limitations Time Seen by Provider: 10/28/22 08:39 Description of Symptoms (Recalled from Triage Doc. by RN): PATIENT STATES SHE BEGAN HAVING FEVER AND CHILLS TUESDAY NIGHT AFTER HER FLU SHOT. SHE REPORTS TESTING POSITIVE FOR COVID ON TUESDAY. SHE STATES SHE IS FEELING BETTER AND WANTS TO MAKE SURE IT'S ALL OUT OF HER SYSTEM . HEENT Symptoms (Recalled from RN notes): No Resp Symptoms (Recalled from RN notes): No Skin Symptoms (Recalled from RN notes): No MS Symptoms (Recalled from RN notes): No Functional Status (Recalled from RN notes): WNL History of Present Illness Provider Complaint: She states that she began to have mild covid-19 symptoms last Tuesday (6 days ago). She tested positive for covid-19 on Tuesday. She states that she did run a fever at first but it has completely went away by Tuesday. Since then, she has felt better and had no symptoms. She has been fully vaccinated against covid and she has had the correct number of boosters too. Related Data Home Medications Medication Instructions Recorded Confirmed nitroglycerin 0.4 mg sublingual 0.4 mg sublingual Q5MINP PRN Chest 01/11/18 10/06/22 tablet Pain montelukast 10 mg tablet 10 mg PO HS PRN Breathing problems 10/08/20 10/06/22 albuterol sulfate 90 mcg/actuation 1 inh inhalation QID PRN 09/06/22 10/06/22 aerosol inhaler ascorbate calcium (vitamin C) 500 500 mg PO DAILY 09/06/22 10/06/22 mg tablet budesonid
[2022-10-28 09:10] VITALS: BP 143/77; PULSE 60; RESP 20; TEMP 36.9; O2SAT 98
== END 2022-10-28 09:14 | disposition home or self-care (01) ==
PROVIDERS: Emergency Provider Nurse Practitioner Family; PCP Nurse Practitioner Family
DX: U07.1 COVID-19 (principal)
CPT/HCPCS: 99212; G0463

== ENCOUNTER → 2022-11-17 12:55 | Outpatient (CLI) | payer MEDICARE, SELFPAY ==
--- NOTE | 2022-11-17 12:56 | CT_ITS ---
FINAL REPORT CLINICAL HISTORY: lung cancer screening. copd, family hx of lung cancer smoked .5 ppd x 40 years FINDINGS: Low-Dose Chest CT Axial images were obtained from the lung apex to the mid abdomen by computed tomography. Low-dose protocol was utilized. CTDI vol (mGy): 2.90 DLP (mGy-cm): 96.38 A left-sided pacemaker is present. There is no axillary adenopathy. There is no hilar or mediastinal adenopathy. The heart is proper size. There is no pericardial or pleural effusion. Lung window images demonstrate no suspicious infiltrate or nodule. Limited images of the upper abdomen are unremarkable. IMPRESSION: Lung RADS category 1. Recommend 12 month follow-up low-dose chest CT. Reviewed, Interpreted and Dictated by Ginette Tanner MD Transcribed by Keisha Miller Authenticated and [facility]
== END ==
PROVIDERS: PCP Nurse Practitioner Family; Visit Provider Internal Medicine Pulmonary Disease
DX: Z87.891 Personal history of nicotine dependence (principal); Z12.2 Encounter for screening for malignant neoplasm of respiratory organs
CPT/HCPCS: 71271

== ENCOUNTER → 2022-12-01 11:53 | Outpatient (CLI) | payer MEDICARE, SELFPAY ==
[2022-12-01 12:36] LABS: Basophils # 0.1 K/mm3 (0-0.2); Eosinophils # 0.1 K/mm3 (0.0-0.4); Eosinophils % 0.9 % (0.1-12.0); Hematocrit 35.8 % (37.0-47.0); Lymphocytes # 3.2 K/mm3 (0.7-4.5); Lymphocytes % 37.8 % (10-50); Mean Corpuscular HGB Conc 30.8 g/dL (31.8-35.4); Mean Corpuscular Hemoglobin 26.4 pg (27.0-31.2); Mean Corpuscular Volume 85.8 fl (81-99); Monocytes # 0.4 K/mm3 (0.1-1.0); Monocytes % 5.2 % (1.7-9.3); Neutrophils # 4.7 K/mm3 (1.8-7.8); Platelet Count 303 K/mm3 (142-424); Red Blood Count 4.17 M/mm3 (4.20-5.40); Red Cell Distribution Width 16.9 % (11.5-17.5); White Blood Count 8.5 K/mm3 (4.8-10.8)
[2022-12-01 12:57] LABS: Chloride 109 mmol/L (98-107); Potassium 3.5 mmoL/L (3.5-5.1); Sodium 143 mmol/L (136-145)
[2022-12-01 12:59] LABS: Alanine Aminotransferase 17 U/L (12-78); Alkaline Phosphatase 70 U/L (38-126); Anion Gap 8.5 mEq/L (5-15); Aspartate Amino Transferase 28 U/L (14-36); Bilirubin,Direct 0.2 mg/dl (0.0-0.4); Bilirubin,Indirect 0.2 mg/dL (0.0-0.9); Bilirubin,Total 0.4 mg/dl (0.2-1.3); Bilirubin,Unconjugated 0.2 mg/dL (0.0-1.1); Blood Urea Nitrogen 14 mg/dl (7-17); Carbon Dioxide 29 mmol/L (22.0-30.0); Estimated Glomerular Filt Rate 99 ml/min (>60); GFR (African American) 120 ML/MIN (>60)
[2022-12-01 13:00] LABS: Albumin Level 3.8 g/dl (3.5-5.0); Calcium 8.8 mg/dl (8.4-10.2); Chol/HDL Ratio 2.7 (1-3.5); Cholesterol 119 mg/dl (140-200); Glucose 82 mg/dl (74-100); HDL Cholesterol 44 mg/dl (40-60); Magnesium 1.8 mg/dl (1.6-2.3); Total Protein,Serum 6.6 g/dl (6.3-8.2); Triglycerides 80 mg/dl (30-150); VLDL Cholesterol 16 mg/dL (0-40)
[2022-12-01 13:16] LABS: Free T4 (Free Thyroxine) 1.28 ng/dl (0.78-2.19)
[2022-12-01 13:31] LABS: Thyroid Stimulating Hormone 1.53 uIU/mL (0.465-4.68)
== END ==
PROVIDERS: PCP Nurse Practitioner Family; Visit Provider Physician Assistant
DX: E78.2 Mixed hyperlipidemia (principal); F17.209 Nicotine dependence, unspecified, with unspecified nicotine-induced disorders; I10 Essential (primary) hypertension; I25.10 Atherosclerotic heart disease of native coronary artery without angina pectoris; I27.20 Pulmonary hypertension, unspecified; I42.9 Cardiomyopathy, unspecified; I51.9 Heart disease, unspecified; I65.23 Occlusion and stenosis of bilateral carotid arteries; J44.9 Chronic obstructive pulmonary disease, unspecified; R06.02 Shortness of breath; R94.31 Abnormal electrocardiogram [ECG] [EKG]
CPT/HCPCS: 36415; 80048; 80061; 80076; 83735; 84439; 84443; 85025

== ENCOUNTER → 2023-06-20 13:24 | Outpatient (CLI) | payer MEDICARE, SELFPAY ==
--- NOTE | 2023-06-20 13:26 | CA_ITS ---
FINAL REPORT TECHNIQUE: Color Doppler, duplex Doppler and cisneros scale sonography of the bilateral neck arterial vasculature was performed. Velocities were measured in the carotid arteries. Stenosis evaluation based on the validated velocity criteria. CLINICAL HISTORY: AMAYA,HTN,SMOKER FINDINGS: The peak systolic velocity of the right common carotid artery is a 80 cm/s. The peak systolic velocity of the right internal carotid artery is 77 cm/s and end diastolic velocity 28 cm/s. The ICA/CCA ratio is 1.1. A small amount of plaque is present. The right external carotid artery is patent. The right vertebral artery is patent with antegrade flow. The peak systolic velocity of the left common carotid artery is 61 cm/s. The peak systolic velocity of the left internal carotid artery is 87 cm/s and end diastolic velocity 32 cm/s. The ICA/CCA ratio is 2.0. A small amount of plaque is present. The left external carotid artery is patent.The left vertebral artery is patent with antegrade flow. IMPRESSION: Less than 50% bilateral carotid stenoses. Bilateral patent vertebral arteries with antegrade flow. If indicated, CTA or MRA could further evaluate. Reviewed, Interpreted and Dictated by Hudson Pinzon III, MD Transcribed by Sharlene Yancey Authenticated and [facility]
== END ==
PROVIDERS: PCP Nurse Practitioner Family; Visit Provider Nurse Practitioner Family
DX: I65.23 Occlusion and stenosis of bilateral carotid arteries
CPT/HCPCS: 93880

== ENCOUNTER 2023-09-26 19:59 | Emergency (ER) | payer MEDICARE, SELFPAY ==
[2023-09-26 20:00] VITALS: BP 116/59; PULSE 62; RESP 14; TEMP 36.8; O2SAT 99; BMI 43.0
--- NOTE | 2023-09-26 20:50 | HMH.EDGENADL ---
Discharge Plan Disposition Patient Disposition: Home, Self-Care Chief Complaint: Weakness Prescriptions Prescriptions: No Action clopidogrel 75 mg tablet 75 mg PO DAILY Qty: 90 3RF fluticasone propionate [Flonase Allergy Relief] 50 mcg/actuation spray,suspension 2 spray intranasal DAILY 90 Days Qty: 16 3RF Rx Instructions: administer into each nostril montelukast 10 mg tablet 10 mg PO HS PRN (Reason: Breathing problems) albuterol sulfate 90 mcg/actuation HFA aerosol inhaler 1 inh INHALATION QID PRN cetirizine [Allergy Relief (cetirizine)] 10 mg tablet 10 mg PO DAILY PRN ascorbate calcium (vitamin C) 500 mg tablet 500 mg PO DAILY aspirin 81 mg tablet 81 mg PO DAILY lisinopril-hydrochlorothiazide 20-12.5 mg tablet See Rx Instructions .ROUTE .COMPLEX Qty: 90 3RF Dose Instruction: TAKE ONE TABLET BY MOUTH EVERY DAY Rx Instructions: TAKE ONE TABLET BY MOUTH EVERY DAY amlodipine [Norvasc] 5 mg tablet 5 mg PO DAILY 90 Days Qty: 90 3RF atorvastatin 40 mg tablet See Rx Instructions .ROUTE .COMPLEX Qty: 90 3RF Dose Instruction: TAKE ONE TABLET BY MOUTH EVERY DAY FOR cholesterol Rx Instructions: TAKE ONE TABLET BY MOUTH EVERY DAY FOR cholesterol pantoprazole 40 mg tablet,delayed release (DR/EC) 40 mg PO DAILY 90 Days Qty: 90 3RF bisoprolol fumarate 5 mg tablet See Rx Instructions .ROUTE .COMPLEX Qty: 90 4RF Dose Instruction: TAKE ONE TABLET BY MOUTH EVERY DAY Rx Instructions: TAKE ONE TABLET BY MOUTH EVERY DAY nitroglycerin 0.4 MG tablet, sublingual 0.4 mg sublingual Q5MINP PRN (Reason: Chest Pain) Referrals Follow up/Referrals: Maurice Holden MD [Primary Care Provider] - See instructions Activity Restrictions/Add. Instructions Additional Instructions/Restrictions: At this time it was felt you are safe to be discharged home. If new or worsening symptoms please do not hesitate to return the emergency department. Please follow-up with your family doctor as soon as you are able. Clinical Impressions Clinical Impression: Weakness, Low blood pressure reading Discharge ED Provider: Cholo Alvarado General Adult HPI General Chief complaint: Weakness Stated complaint: LOW BLOOD PRESSURE Time Seen by Provider: 09/26/23 20:30 Mode of Arrival: Ambulatory Source of Information: Patient Limitations: No Limitations Description of Symptoms (Recalled from ER Triage Doc. by RN): Patient ambulatory to ED. C/O of generalized weakness x 2 weeks. patient with recent procedure at 5 weeks ago and hasnt felt right since. No N/V/D. patient has movement of all extremities. Patient was supposed to be seen at Dr. Cathryn rojas for anemia but never made appt. History of Present Illness HPI narrative: Patient is a 73-year-old female who presents emergency department for evaluation of weakness. Patient states that she takes her blood pressure medicine every morning, over the course of the day she has had blood pressure approximately 90/50 earlier today with global weakness. Patient denies trauma, chest pain, shortness of breath, cough, abdominal pain, dysuria, other acute complaints. Patient states that her weakness has since resolved. She has no acute complaints. Related Data Home Medications Medication Instructions Recorded Confirmed nitroglycerin 0.4 mg sublingual 0.4 mg sublingual Q5MINP PRN Chest 01/11/18 06/16/23 tablet Pain montelukast 10 mg tablet 10 mg PO HS PRN Breathing problems 10/08/20 06/16/23 albuterol sulfate 90 mcg/actuation 1 inh inhalation QID PRN 09/06/22 06/16/23 aerosol inhaler ascorbate calcium (vitamin C) 500 500 mg PO DAILY 09/06/22 06/16/23 mg tablet cetirizine 10 mg tablet (Allergy 10 mg PO DAILY PRN 09/06/22 06/16/23 Relief (cetirizine)) aspirin 81 mg tablet 81 mg PO DAILY 06/16/23 06/16/23 Previous Rx's Medication Instructions Recorded clopidogrel 75 mg tablet 75 mg PO DAILY
[2023-09-26 21:07] VITALS: BP 127/69; PULSE 60; RESP 18; TEMP 36.8
[2023-09-26 21:09] VITALS: BP 127/69; PULSE 60; RESP 14; TEMP 36.7; O2SAT 97
== END 2023-09-26 21:09 | disposition home or self-care (01) ==
PROVIDERS: Emergency Provider Emergency Medicine; PCP Family Medicine
DX: I95.89 Other hypotension (principal); R53.1 Weakness; F17.210 Nicotine dependence, cigarettes, uncomplicated; I65.29 Occlusion and stenosis of unspecified carotid artery; J44.9 Chronic obstructive pulmonary disease, unspecified; I27.20 Pulmonary hypertension, unspecified; Z95.0 Presence of cardiac pacemaker
CPT/HCPCS: 99283

== ENCOUNTER 2024-01-12 14:44 | Outpatient (CLI) | payer MEDICARE, SELFPAY ==
--- NOTE | 2024-01-12 14:44 | CT_ITS ---
FINAL REPORT TECHNIQUE: Thin section axial images were obtained through the lungs using a low-dose technique per lung cancer screening protocol. Reconstruction images were obtained using the axial data. Exam was performed using dose reduction technique. CLINICAL HISTORY: lung cancer screening current smoker 1 ppd x 45 years COMPARISON: 11/17/2022 FINDINGS: CTDLvol: 2.90 DLP: 103.68 Current smoker 45 pack year history Lungs: There is evidence of prior granulomatous disease. There are subpleural interstitial changes in the anterior left lower lobe which are stable. The lungs are otherwise clear. No suspicious nodules. Lymph nodes: There is no axillary lymphadenopathy. There are small mediastinal lymph nodes which are stable. Mediastinum: Heart size is normal. The ascending aorta measures 4 cm, unchanged. There are prominent coronary artery calcifications. Pleura/pericardium: No pleural or pericardial effusion. Other: No acute abnormality in the upper abdomen. IMPRESSION: No suspicious pulmonary nodule or mass. Lung RADS: 1S Recommendation: 12-month follow-up low-dose CT chest. Modifier S: Ascending aortic aneurysm and coronary artery calcifications. Reviewed, Interpreted and Dictated by Susie Delgado MD Transcribed by Kirsty Ferguson Authenticated and . [facility]
== END 2024-01-12 23:59 ==
LOC: RAD 14:44
PROVIDERS: PCP Family Medicine; Visit Provider Internal Medicine Pulmonary Disease
DX: F17.210 Nicotine dependence, cigarettes, uncomplicated (principal)
CPT/HCPCS: 71271

== ENCOUNTER 2024-03-10 10:46 | Emergency (ER) | payer MEDICARE, SELFPAY ==
[2024-03-10 11:26] VITALS: BP 145/72; PULSE 63; RESP 18; TEMP 36.9; O2SAT 99; BMI 20.7
--- NOTE | 2024-03-10 11:42 | ED_ITS ---
Discharge Plan Disposition Patient Disposition: Home, Self-Care Condition: Good Prescriptions Prescriptions: New cephalexin 500 mg tablet 500 mg PO BID 10 Days Qty: 20 0RF No Action clopidogrel 75 mg tablet 75 mg PO DAILY Qty: 90 3RF fluticasone propionate [Flonase Allergy Relief] 50 mcg/actuation spray,suspension 2 spray intranasal DAILY 90 Days Qty: 16 3RF Rx Instructions: administer into each nostril bisoprolol fumarate 10 mg tablet 10 mg PO DAILY Qty: 30 6RF montelukast 10 mg tablet 10 mg PO HS PRN (Reason: Breathing problems) albuterol sulfate 90 mcg/actuation HFA aerosol inhaler 1 inh INHALATION QID PRN cetirizine [Allergy Relief (cetirizine)] 10 mg tablet 10 mg PO DAILY PRN ascorbate calcium (vitamin C) 500 mg tablet 500 mg PO DAILY aspirin 81 mg tablet 81 mg PO DAILY lisinopril-hydrochlorothiazide 20-12.5 mg tablet See Rx Instructions .ROUTE .COMPLEX Qty: 90 3RF Dose Instruction: TAKE ONE TABLET BY MOUTH EVERY DAY Rx Instructions: TAKE ONE TABLET BY MOUTH EVERY DAY atorvastatin 40 mg tablet See Rx Instructions .ROUTE .COMPLEX Qty: 90 3RF Dose Instruction: TAKE ONE TABLET BY MOUTH EVERY DAY FOR cholesterol Rx Instructions: TAKE ONE TABLET BY MOUTH EVERY DAY FOR cholesterol pantoprazole 40 mg tablet,delayed release (DR/EC) 40 mg PO DAILY 90 Days Qty: 90 3RF nitroglycerin 0.4 MG tablet, sublingual 0.4 mg sublingual Q5MINP PRN (Reason: Chest Pain) Referrals Follow up/Referrals: Maurice Holden MD [Primary Care Provider] - See instructions Activity Restrictions/Add. Instructions Additional Instructions/Restrictions: Start antibiotic patient to take as ordered for a full length of time even if you feel better. Sinus infections do not get better overnight. It may take 2-3 days to notice much improvement so be sure to use conservative measures as discussed for symptoms. Flonase 1 spray each nostril daily to help with nasal congestion, sinus and ear pressure/information Increase fluids Humidifier/vaporizer as needed Tylenol and ibuprofen as needed for fever or pain. If symptoms do not improve or get worse return or be seen in the ER Follow-up with primary care this week Clinical Impressions Clinical Impression: Acute maxillary sinusitis Qualifiers: Recurrence: non-recurrent Qualified Code(s): J01.00 - Acute maxillary sinusitis, unspecified Instructions Patient Instructions: DI for Sinusitis Discharge ED Provider: Adriano Connell [facility] General Stated complaint: congestion, headache Mode of Arrival: Ambulatory Limitations: No Limitations Time Seen by Provider: 03/10/24 11:43 Description of Symptoms (Recalled from Triage Doc. by RN): PT REPORTS CONGESTION X 3 DAYS HEENT Symptoms (Recalled from RN notes): Yes Resp Symptoms (Recalled from RN notes): Yes Skin Symptoms (Recalled from RN notes): No MS Symptoms (Recalled from RN notes): No Functional Status (Recalled from RN notes): NA History of Present Illness Provider Complaint: 73 yr old female presents for c/o nasal drainage, sinus pressure, tenderness, cough and pressure behind eyes for 3 days Related Data Home Medications Medication Instructions Recorded Confirmed nitroglycerin 0.4 mg sublingual 0.4 mg sublingual Q5MINP PRN Chest 01/11/18 01/17/24 tablet Pain montelukast 10 mg tablet 10 mg PO HS PRN Breathing problems 10/08/20 01/17/24 albuterol sulfate 90 mcg/actuation 1 inh inhalation QID PRN 09/06/22 01/17/24 aerosol inhaler ascorbate calcium (vitamin C) 500 500 mg PO DAILY 09/06/22 01/17/24 mg tablet cetirizine 10 mg tablet (Allergy 10 mg PO DAILY PRN 09/06/22 01/17/24 Relief (cetirizine)) aspirin 81 mg tablet 81 mg PO DAILY 06/16/23 01/17/24 Previous Rx's Medication Instructions Recorded clopidogrel 75 mg tablet 75 mg PO 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 02/27/20 #90 tabs fluticasone propionate 50 2 spray intranasal DAILY 90 days 01/10/23 mcg/actuation nasal #16 grams spray,suspension (Flonase Allergy Relief) lisinopril 20 See Rx Instructions .Route 06/16/23 mg-hydrochlorothiazide 12.5 mg .COMPLEX #90 tabs tablet atorvastatin 40 mg tablet See Rx Instructions .Route 08/08/23 .COMPLEX #90 tabs pantoprazole 40 mg tablet,delayed 40 mg PO DAILY GERD 90 days #90 08/08/23 release tabs bisoprolol fumarate 10 mg tablet 10 mg PO DAILY #30 tabs 12/20/23 cephalexin 500 mg tablet 500 mg PO BID 10 days #20 tabs 03/10/24 Allergies Allergy/AdvReac Type Severity Reaction Status Date / Time loratadine [From Claritin-D] Allergy Verified 01/17/24 14:09 pseudoephedrine Allergy Verified 01/17/24 14:09 [From Claritin-D] Worker's Comp Is this a Worker's Comp case?: No [facility] Disclaimer: The information contained in this section may have been updated after the patient was seen, as this information can be updated by other users. 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 Cardiac pacemaker in situ Junctional escape beats Sinus arrest Abnormal EKG Dizziness Exertional dyspnea Pulmonary HTN Diastolic dysfunction Surgical History , HOUSE MOVER) History of cardiac cath History of permanent cardiac pacemaker placement Hx of cholecystectomy History of total hysterectomy History of lumpectomy Family History , HOUSE MOVER) Diabetes Heart attack Cancer Hypertension Social History , HOUSE MOVER) Smoking Status: Current every day smoker tobacco type: cigarettes packs per day: 0 second hand exposure: Yes alcohol intake: never substance use type: denies use current occupational status: other Travel in the last 8 weeks: None household members: spouse housing: house current occupational exposures/hazards: No caffeine: Yes ROS Obtained: Yes All systems reviewed & no additional complaints except as documented Constitutional Constitutional: Reports system reviewed and no additional complaints, except as documented and Reports as per HPI Eyes Eyes: Reports system reviewed and no additional complaints, except as documented and Reports as per HPI ENT Ears, Nose, Mouth, and Throat: Reports system reviewed and no additional complaints, except as documented, Reports as per HPI, Reports facial pain, Reports nasal congestion, Reports nasal discharge, Reports post nasal drip, Reports sinus pain and Reports sinus pressure Cardiovascular Cardiovascular: Reports system reviewed and no additional complaints, except as documented Respiratory Respiratory: Reports system reviewed and no additional complaints, except as documented, Reports as per HPI and Reports cough Integumentary/Breasts Skin/Breast: Reports system reviewed and no additional complaints, except as documented Neurologic Neurologic: Reports system reviewed and no additional complaints, except as documented Endocrine Endocrine: Reports system reviewed and no additional complaints, except as documented Allergic/Immunologic Allergic/Immunologic: Reports system reviewed and no additional complaints, except as documented Physical Exam General General appearance: alert and in no apparent distress Head Head exam: atraumatic Eye Eye exam: Present normal appearance and PERRL ENT ENT exam: Present mucous membranes moist and TM's normal bilaterally Expanded ENT Exam Nose exam: Present sinus tenderness Respiratory Respiratory exam: Present normal lung sounds bilaterally Cardiovascular Cardiovascular exam: Present regular rate and normal rhythm Neurological Exam Neurological exam: Present alert and oriented X3 Skin Skin exam: Present warm and dry Medical Decision Making Medical Records Medical records reviewed: Yes I reviewed the patient's medical records. Tomasz Inquiry Pt receiving controlled substance: No Tomasz was queried for this patient: No Vital Signs: 03/10/24 11:26 Temperature 98.5 F Temperature Source Oral Pulse Rate [Radial] 63 Respiratory Rate 18 Blood Pressure [Right Arm] 145/72 H Blood Pressure Mean [Right Arm] 96 Blood Pressure Source [Right Arm] Automatic Cuff Blood Pressure Position [Right Arm] Sitting 02 Sat by Pulse Oximetry 99 Oxygen Delivery Method Room Air Lab Data Lab results reviewed: Yes I reviewed the patient's lab results.
[2024-03-10 11:55] VITALS: BP 145/72; PULSE 63; RESP 18; TEMP 36.9; O2SAT 99
== END 2024-03-10 11:56 | disposition home or self-care (01) ==
PROVIDERS: Emergency Provider Student in an Organized Health Care Education/Training Program; PCP Family Medicine
DX: J01.00 Acute maxillary sinusitis, unspecified (principal); R05.9 Cough, unspecified; R09.81 Nasal congestion; F17.210 Nicotine dependence, cigarettes, uncomplicated; J44.9 Chronic obstructive pulmonary disease, unspecified
CPT/HCPCS: 99212; 99214; G0463

== ENCOUNTER 2024-03-15 07:09 | Outpatient (CLI) | payer MEDICARE, SELFPAY ==
--- NOTE | 2024-03-15 07:35 | US_ITS ---
Ultrasound Sonograher: PROCEDURE: US TRANSVAGINAL CLINICAL INDICATION: VAGINAL DISCOMFORT COMPARISON: US US ABDOMEN COMPLETE from 03/15/2024 FINDINGS: Transvaginal sonographic images of the pelvis were obtained. UTERUS: Surgically absent The bladder is seen postvoid and there is significant residual urine. LEFT OVARY: Surgically absent, no adnexal masses. RIGHT OVARY: Surgically absent, no adnexal masses. The ovaries are not seen and surgically absent. There is no fluid in the cul-de-sac. IMPRESSION: 1. The uterus and ovaries have been surgically removed. 2. There are no adnexal masses. 3. The bladder is prominent and had significant postvoid residual urine. 4. No fluid in the cul-de-sac. Dictated by: Zurdo Ulloa MD 03/15/2024 09:18 Zurdo Ulloa MD in OV 03/15/2024 09:18
--- NOTE | 2024-03-15 07:35 | US_ITS ---
FINAL REPORT CLINICAL HISTORY: ABDOMINAL PAIN FINDINGS: Sonographic images of the abdomen were obtained. The liver has an unremarkable appearance with normal echogenicity. The gallbladder is absent. The common duct is normal. Limited images of the pancreas are unremarkable. The spleen size is grossly normal. The right kidney measures 9.5 cm in length. The left kidney measures 9.0 cm in length. There is normal renal echogenicity. There is no evidence of hydronephrosis. The aorta has an unremarkable appearance. Limited images of the inferior vena cava are unremarkable. IMPRESSION: Status post cholecystectomy. Reviewed, Interpreted and Dictated by Ginette Tanner MD Transcribed by Sharlene Yacney Authenticated and [facility]
== END 2024-03-15 23:59 | disposition home or self-care (01) ==
LOC: RAD 07:11
PROVIDERS: PCP Nurse Practitioner; Visit Provider Nurse Practitioner
DX: N94.9 Unspecified condition associated with female genital organs and menstrual cycle (principal); R10.9 Unspecified abdominal pain
CPT/HCPCS: 76700; 76830

== ENCOUNTER 2024-04-20 07:28 | Outpatient (CLI) | payer MEDICARE, SELFPAY ==
--- NOTE | 2024-04-20 07:43 | MM_ITS ---
PROCEDURE INFORMATION: Exam: MG Bilateral Screening 3D Mammography Exam date and time: 04/20/2024 8:06 AM Age: 74 years old Clinical indication: Screening mammogram TECHNIQUE: Imaging protocol: Bilateral Screening tomosynthesis and 2D mammography including computer-aided detection (CAD) when performed. COMPARISON: 1. MG DMSB DIGITAL MAMM-SCREEN BILATERAL 03/31/2011 8:58 AM 2. MG DIGMAMMS MAMMOGRAM SCREEN-BATCH TRUCKER N/C 09/19/2009 10:37 AM 3. MG DIGMAMMS MAMMOGRAM SCREEN-BATCH TRUCKER N/C 09/17/2008 10:37 AM FINDINGS: MAMMOGRAPHY: Breast composition: There are scattered areas of fibroglandular density. Mass: None. Architectural distortion: No new or suspicious architectural distortion. Calcifications: No new or suspicious calcifications are present Asymmetric density: No new or suspicious asymmetric density is present Skin thickening: None. Axillary adenopathy: None. Other findings: Postoperative and post radiotherapeutic changes on the left IMPRESSION: No mammographic evidence of malignancy. Recommend annual screening mammography unless otherwise clinically indicated. ASSESSMENT: BI-RADS category 2: Benign.
--- NOTE | 2024-04-20 07:44 | FL_ITS ---
FINAL REPORT CLINICAL HISTORY: dysphagia..abd pain fluoro time2.23 dap 1556.71 FINDINGS: UPPER GI WITH SBFT UPPER GI EXAM HISTORY: Abdominal pain, nausea. PROCEDURE: The patient ingested barium. Effervescent crystals were also administered. Spot and overhead films were obtained. FINDINGS: The esophagus is normal. There is no hiatal hernia. There is markedgastroesophageal reflux. Peristalsis is normal. The rugal fold pattern of the stomach is normal. The duodenal bulb is normal. Fluoroscopy time: 2 minutes 23 seconds Radiation exposure in Reference air Kerma: mGy Fluoro dose: 1556.71 DAP in uGym2 IMPRESSION: Marked gastroesophageal reflux to the level of the cervical esophagus. SBFT: The batch blender film is normal. There is no evidence of obstruction. The mucosal fold pattern is normal. The terminal ilium is normal. IMPRESSION: Normal SBFT. Films reviewed , interpreted and dictated by Dr. Pinzon Transcribed by Kyle Ramirez PA-C. Reviewed, Interpreted and Dictated by Hudson Pinzon III, MD Transcribed by NARESH Chiu Authenticated and [facility]
[2024-04-20] MEDS: BARIUM SULFATE(LIQUID E-Z-PAQUE);355ML BOTTLE 355 ML PO (09:54)
[2024-04-20] MEDS: DIATRIZOATE MEGLUMINE(GASTROGRAFIN) 66%-10% 120ML 20 ML PO (09:54)
[2024-04-20] MEDS: E-Z-GASII EFFERVESCENT GRANULES;1PK 1 EACH PO (09:54)
[2024-04-20] MEDS: BARIUM SULFATE (E-Z-HD 340GM);135ML BOTTLE 135 ML PO (09:54)
== END 2024-04-20 23:59 | disposition home or self-care (01) ==
LOC: RAD 07:29
PROVIDERS: PCP Nurse Practitioner; Visit Provider Nurse Practitioner
DX: Z12.31 Encounter for screening mammogram for malignant neoplasm of breast (principal); R13.10 Dysphagia, unspecified
CPT/HCPCS: 74246; 74248; 77063; 77067

== ENCOUNTER 2024-08-02 07:19 | Outpatient (CLI) | payer MEDICARE, SELFPAY ==
--- NOTE | 2024-08-02 07:19 | NM_ITS ---
APPROVED REPORT Exam: Nuclear Stress Test Indication: chest pain..fatigue..soa Patient Location: Outpatient Stress Tech: Barbara Naranjo [place] Tech:Chiqui Poe COBYMichael RT(R)(N) Ht: 5 ft 1 in Wt: 115 lbs Bra Size: 38d HR: 60 bpm BP: 149/77 mmHg BSA: 1.49 m2 TID: 0.88 BMI: 21.7 History: chest pain..fatigue..soa Procedure: Patient received 0.4 mg of intravenous Lexiscan, resting heart rate 60 bpm, resting blood pressure 149/77 mmHg, with Lexiscan maximum heart rate achieved was 71 bpm which is 85 % of the maximum predicted heart rate and blood pressure was 149/77 mmHg. With Lexiscan, patient denied any complaint of chest pain. Cardiac Stress and Resting SPECT Images: Cardiac Stress and Resting SPECT images were obtained using technetium 99m Myoview 31.5 mCi stress and 10.87 mCi at rest. Resting and stress imaging in supine and prone positions demonstrate a large sized, moderate, predominantly fixed anterior perfusion defect from the base and extending distally towards the LV apical wall. There is also medium sized, moderate, partially reversible perfusion defect in the basal inferior LV wall. Gated imaging demonstrates mild reduction global LV systolic function. The mid to distal anterior and LV apical jeter are nearly akinetic. LVEF is calculated at 45%. Conclusion: Large sized, moderate, predominantly fixed anterior perfusion defect from the base and extending distally towards the LV apical wall. There is also medium sized, moderate, partially reversible perfusion defect in the basal inferior LV wall. Findings are suggestive of partial reversible ischemia. Gated imaging demonstrates mild reduction global LV systolic function. The mid to distal anterior and LV apical jeter are nearly akinetic. LVEF is calculated at 45%. Electronically signed by : Naz Kauffman MD 08/02/2024 13:42:48
--- NOTE | 2024-08-02 07:19 | CA_ITS ---
APPROVED REPORT Exam: Pharmacologic Technologist: Marylin Rice, Ht: 5 ft 4 in Wt: 115 lbs BSA: 1.55 m2 HR: 60 bpm BP: 149/77 mmHg Rhythm: NSR 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 Medications: Aspirin,,,,, Pantoprazole,,,,, Atorvastatin,,,,, Flonase,,,,, Nicotine,,,,, Albuterol,,,,, Montelukast,,,,, CloPIdogrel,,,,, BisOPROLOL Fumarate,,,,, Oxybutynin Chloride ER,,,,, Lisinopril-HCTZ,,,,, Notroglycerin,,,,, Stress Test Details Test: LEXISCAN Reason for pharmacologic stress test: changed from exercise stress test due to inability to reach target heart rate. HR Resting HR: 60 bpm Max Heart Rate (APMHR): 148 bpm Max HR Achieved: 71 bpm Target HR (85% APMHR): 126 bpm % of APMHR: 48 Recovery HR: 62 bpm BP Resting BP: 149.0/77.0 mmHg Max BP: 149.0/77.0 mmHg Recovery BP: 135.0/62.0 mmHg ECG Resting ECG: SR w/ IVCD Stress ECG: No significant ST changes Arrhythmia: None Clinical Exercise duration: 03:59 min Highest Stage Achieved: Exercise capacity: 1.0 METs Stress ECG Conclusion Symptoms: None. Arrhythmias/Ectopy: None. ST-T Changes: No significant ST changes. Conclusion: Unremarkable due to Lexiscan. Myoview images reported separately. Test Summary REST . . . . . . . Resting REST 00:45 . . 60 . 149/ 77 . . Stage 1 . . . . . . . Cardiolite injected Stage 1 01:00 . . 60 . . . . Stage 2 01:00 . . 69 . 129/ 67 . . Stage 3 01:00 . . 64 . 130/ 64 . . Stage 4 00:59 . . 64 . 124/ 62 . Stop exercise at 03:59 RECOVERY 01:00 . . 63 . . . . RECOVERY 02:00 . . 62 . 135/ 62 . . RECOVERY 02:06 . . 62 . 135/ 62 . . Electronically signed by : Naz Kauffman MD 08/02/2024 13:41:11
--- NOTE | 2024-08-02 07:32 | CA_ITS ---
APPROVED REPORT EXAM: Comprehensive 2D, Doppler, and color-flow Echocardiogram Patrol Man: Sanjuana Mullins, CHHAYA, RVS Ht: 5 ft 1 in Wt: 115lbs BSA: 1.49 BP: 167/77 mmHg Indications: Pre-op clearance, H/O CM, CAD, Abn EKG, PHTN, COPD, SOB, Pacer,Smoker 2D Dimensions Left Atrium 3.45 cm F: 2.7 - 3.8 LA Volume 77.50 mL LA Volume Index [id number] mL/m2 (M/F) 16-34 M-Mode Dimensions RVDd 3.05 cm (0.9-2.6) LA Diam 3.17 cm (1.9-4.0) LVDd 4.99 cm (3.5-5.7) LVDs 3.99 cm (3.5-5.7) IVSd 1.04 cm (0.6-1.1) PWd 1.00 cm (0.6-1.1) EF (Teich) 41.10% EPSs 0.77 cm FS 20.20% EDV (Teich) 118.20 mL TAPSE 1.68 (<1.7) ESV (Teich) 69.60 mL LV Diastology E Decel Time 173 (160-240 msec) E/A Ratio 0.87 MED A' 7.50 cm/s LAT A' 7.00 cm/s Aortic Valve VALENTINA Index 1.93 cm2/m2 AoV Peak Cameron. 106.0 (50-130 cm/s) AI PHT 584.00 ms AO Peak GR. 4.50 mmHg AO Mean GR. 2.20 (<5 mmHg) AO VTI 23.6 (18-25 cm) VALENTINA (VTI) 2.95 (2.5-4.5 cm2) Mitral Valve MV A Velocity 74.0 (40-130 cm/s) E/A Ratio 0.87 MV Mean Gr. 1.00 (<2mmHg) MV PHT 67.0 ms Pulmonary Valve FL End VMAX 193.0 cm/s Tricuspid Valve TR P. Velocity 274.00 cm/s RAP Estimate 10.00 mmHg RVSP 40.10 mmHg Left Ventricle The left ventricle is normal size. The left ventricular systolic function is mildly reduced. There is normal left ventricular wall thickness. There is mild global hypokinesis. There is moderate hypokinesis of the LV apical wall. Grade 2 diastolic dysfunction is present. LVEF is 45%. Right Ventricle Right ventricle is mildly dilated. Right ventricle is mildly hypokinetic. Atria Left atrium is severely dilated. Right atrium is mildly dilated. There is no Doppler evidence of interatrial shunt. Aortic Valve The aortic valve is mildly thickened. Mild aortic regurgitation. There is no aortic valvular stenosis. Mitral Valve The mitral valve leaflets are mildly thickened. No evidence of mitral valve stenosis. Moderate mitral regurgitation. Tricuspid Valve The tricuspid valve leaflets are thin and pliable. Moderate tricuspid regurgitation. RVSP is 30-35 mmHg. Pulmonic Valve The pulmonary valve is normal in structure. Mild pulmonic regurgitation. Great Vessels The aortic root is normal in size. The ascending aorta is not well-visualized. IVC is normal in size and collapses >50% with inspiration. Pericardium There is no pericardial effusion. Other Information Study Quality: Fair Conclusion Mild reduction in LV systolic function (LVEF 45%.) Moderate hypokinesis of the LV apical wall. Mild RV dilation with mild reduction in RV function. Moderate MR, moderate TR. Mild AI, mild PI. RVSP 30-35 mmHg. Electronically signed by : Naz Kauffman MD 08/05/2024 01:16:52
[2024-08-02] MEDS: REGADENOSON 0.4MG/5ML SYRINGE 0.4 MG IV (09:35)
[2024-08-02] MEDS: SODIUM CHLORIDE 0.9% 10ML SYR (RAD ONLY) 10 ML IV ×2 (11:58)
[2024-08-02] MEDS: ISOTOPE MYOVIEW (PER STUDY) 1 DOSE IV (11:58)
== END 2024-08-02 23:59 | disposition home or self-care (01) ==
LOC: RAD 07:19
PROVIDERS: PCP Nurse Practitioner; Visit Provider Internal Medicine
DX: I25.2 Old myocardial infarction (principal); I25.10 Atherosclerotic heart disease of native coronary artery without angina pectoris; J44.9 Chronic obstructive pulmonary disease, unspecified; F17.209 Nicotine dependence, unspecified, with unspecified nicotine-induced disorders; E78.2 Mixed hyperlipidemia; I10 Essential (primary) hypertension; I51.9 Heart disease, unspecified; I27.20 Pulmonary hypertension, unspecified; R94.31 Abnormal electrocardiogram [ECG] [EKG]; Z95.0 Presence of cardiac pacemaker; I42.9 Cardiomyopathy, unspecified; R07.89 Other chest pain; Z01.810 Encounter for preprocedural cardiovascular examination
CPT/HCPCS: 78452; 93017; 93018; 93306; A9502; J2785

== ENCOUNTER 2024-08-27 08:10 | Day surgery (SDC) | payer MEDICARE, SELFPAY ==
[2024-08-27] VITALS (8 sets, daily range): BP systolic 124–159; BP diastolic 61–89; PULSE 60; RESP 20; TEMP 36.6; O2SAT 92–100; BMI 20.9
--- NOTE | 2024-08-27 06:58 | IR_ITS ---
APPROVED REPORT Patient Location: Outpatient Garbage Collector: Ubaldo iRcardo, RT (R) PROCEDURES Left heart catheterization Left ventriculogram Selective coronary angiogram INDICATION Preoperative evaluation, Abnormal Myoview, Known coronary artery disease, Informed consent was obtained prior to the procedure. COMPLICATIONS none Estimated Blood Loss: less than 10ml TECHNIQUE One percent lidocaine used to anesthetize the right anterior aspect of the wrist. The right ulnar artery was accessed via the Seldinger technique. A 6 Belgian sheath was placed in the right ulnar dial artery. 2.5 mg of Verapamil, 800 mcg of nitroglycerin, 1mg Lidocaine and 5000 U Heparin were given through the arterial sheath. The papa catheter was also used to perform left heart catheterization, left ventriculogram and selective coronary angiogram. At the end of the procedure the sheath was removed good hemostasis was achieved using Traclet band, patient was transferred to the postop holding area in stable condition. ANGIOGRAPHIC RESULTS The left main artery Normal The left anterior descending artery Is proximally patent and gives rise to 3 septal perforators and 2 small to medium sized first diagonal arteries. The 3 septal perforators and 2 diagonal arteries are widely patent. Distal to the second diagonal artery stents are present from the mid to distal segment the stents are subtotally occluded however there are small and numerous septal perforators within the subtotally occluded stent. There is no distal flow into the apex The circumflex artery Is a dominant vessel and proximally normal gives rise to a large first obtuse marginal artery with mild 10% luminal regularities. The mid circumflex artery then has a concentric 40% stenosis which supplies a large terminal obtuse marginal artery/posterior descending artery The right coronary artery Is a codominant vessel and has stents in the proximal mid and distal segment. The midportion has 40 to 50% concentric in-stent restenosis. The posterior descending artery and posterolateral branches are both large and widely patent. The distal LAD is being fed via right to left collaterals The GOINS ventriculogram reveals Slight left ventricular dilatation with mid anterior apical hypokinesis estimate ejection fraction 45% The left ventricular end-diastolic pressure 20 mmHg IMPRESSION Chronically occluded mid LAD as described above with regional wall motion abnormality which is best managed medically Widely patent coronary arteries as described above Elevated LVEDP PLAN 1. Recommend medical management. The LAD was previously subtotally occluded and was revascularized. The stents that were placed in the mid and distal LAD were rather small with drug-eluting stents and if now subtotally occluded. The septal perforators are widely patent as are the first 2 diagonal arteries. The distal LAD is also collateralized from the right coronary artery. Long-term patency cannot be expected with stenting this mid and distal LAD. Recommend continue medical management with physical therapy in order to promote collateralization 2. Patient is an acceptable risk to proceed with nonvascular surgery 3. LDL less than 55 to be achieved with high intensity statin 4. Maximize antianginal medications Electronically signed by : Charlie Mcdaniels MD 08/27/2024 10:47:50
[2024-08-27 08:44] LABS: Basophils # 0.1 K/mm3 (0-0.2); Basophils % 0.7 % (0.1-2.0); Eosinophils # 0.1 K/mm3 (0.0-0.4); Eosinophils % 1.1 % (0.1-12.0); Hematocrit 36.5 % (37.0-47.0); Hemoglobin 11.6 g/dL (12.2-16.2); Lymphocytes # 2.5 K/mm3 (0.7-4.5); Lymphocytes % 24.4 % (10-50); Mean Corpuscular HGB Conc 31.8 g/dL (31.8-35.4); Mean Corpuscular Hemoglobin 26.8 pg (27.0-31.2); Mean Corpuscular Volume 84.2 fl (81-99); Mean Platelet Volume 8.2 fl (7.4-10.4); Monocytes # 0.5 K/mm3 (0.1-1.0); Monocytes % 5.2 % (1.7-9.3); Neutrophils # 6.9 K/mm3 (1.8-7.8); Neutrophils % 68.5 % (37.0-80.0); Platelet Count 213 K/mm3 (142-424); Red Blood Count 4.33 M/mm3 (4.20-5.40); Red Cell Distribution Width 18.8 % (11.5-17.5); White Blood Count 10.1 K/mm3 (4.8-10.8)
[2024-08-27 08:50] LABS: Chloride 109 mmol/L (98-107); Potassium 3.5 mmoL/L (3.5-5.1); Sodium 140 mmol/L (136-145)
[2024-08-27 08:53] LABS: Blood Urea Nitrogen 20 mg/dl (7-17); Creatinine Clearance Estimated 40 mL/min (50-200); Estimated Glomerular Filt Rate 82 ml/min (>60); GFR (African American) 100 ML/MIN (>60)
[2024-08-27 08:54] LABS: Anion Gap 6.5 mEq/L (5-15); Carbon Dioxide 28 mmol/L (22.0-30.0); Glucose 98 mg/dl (74-100)
[2024-08-27] MEDS: 0.9 % SODIUM CHLORIDE 500 ML 25 ML IV (10:13)
[2024-08-27] MEDS: diphenhydrAMINE 50MG/ML VIAL 50 MG IV (10:14)
[2024-08-27] MEDS: HEPARIN 1,000 UNITS/ML 10ML VIAL (CATH LAB) 10000 UNIT IV (10:15)
[2024-08-27] MEDS: HEPARIN 1,000 UNITS/500ML NS (CATH LAB) 3000 UNIT IV (10:15)
[2024-08-27] MEDS: LIDOCAINE 1% 10ML MDV 20 ML IJ (10:15)
[2024-08-27] MEDS: MIDAZOLAM HCL 1MG/1ML 5ML VIAL 1 MG IV (10:16)
[2024-08-27] MEDS: FENTANYL 100MCG/2ML VIAL 50 MCG IV (10:16)
[2024-08-27] MEDS: VERAPAMIL 2.5MG/ML 2ML VIAL 2.5 MG IV (10:17)
[2024-08-27] MEDS: IOPAMIDOL-370 (76%);100ML BOTTLE 50 ML IV (10:51)
== END 2024-08-27 12:44 | disposition home or self-care (01) ==
PROVIDERS: PCP Family Medicine; Visit Provider Internal Medicine
DX: I65.23 Occlusion and stenosis of bilateral carotid arteries; I42.9 Cardiomyopathy, unspecified; R94.31 Abnormal electrocardiogram [ECG] [EKG]; F17.210 Nicotine dependence, cigarettes, uncomplicated; Z79.899 Other long term (current) drug therapy; I25.10 Atherosclerotic heart disease of native coronary artery without angina pectoris
CPT/HCPCS: 80048; 85025; 93458; 99152; C1725; C1769; J1200; J1644; J2250; J3010; Q9967

== ENCOUNTER 2024-08-28 10:55 | Outpatient (CLI) | payer MEDICARE, SELFPAY ==
--- NOTE | 2024-08-28 11:01 | CA_ITS ---
FINAL REPORT CLINICAL HISTORY: M79.601 - Pain in right arm Heart cath 08-27-24 Right radial access FINDINGS: DUPLEX DOPPLER RIGHT UPPER EXTREMITY TECHNIQUE: Axial and color Doppler waveform evaluation of the right radial artery was performed. FINDINGS: There is thrombus in the radial artery. There may be a small hematoma present adjacent to the radial artery. IMPRESSION: Thrombus in the right radial artery. Possible small hematoma adjacent to the radial artery. Reviewed, Interpreted and Dictated by Abad Gray MD Transcribed by Maria Fernanda Pineda Authenticated and [facility]
== END 2024-08-28 23:59 | disposition home or self-care (01) ==
LOC: RT 10:56
PROVIDERS: PCP Nurse Practitioner; Visit Provider Nurse Practitioner
DX: M79.601 Pain in right arm (principal)
CPT/HCPCS: 93931

== ENCOUNTER 2025-01-01 08:53 | Outpatient (CLI) | payer MEDICARE, SELFPAY ==
--- NOTE | 2025-01-01 08:58 | CA_ITS ---
FINAL REPORT CLINICAL HISTORY: Hx of right radial thrombus post heart cath 08/28/24. Patient is on 81 mg ASA and Plavix daily. HTN, HLD, smoker. Right wrist scanned only for follow-up to thrombus. COMPARISON: 08/28/2024 FINDINGS: Limited Spectral and Doppler waveform evaluations of the right wrist only were performed. Spectral analysis was performed. The previously seen radial artery thrombus has resolved. No new abnormality identified. IMPRESSION: Resolution of previously seen right radial artery thrombus. Reviewed, Interpreted and Dictated by Susie Delgado MD Transcribed by Kirsty Ferguson Authenticated and [facility]
== END 2025-01-01 23:59 | disposition home or self-care (01) ==
LOC: RT 08:54
PROVIDERS: PCP Nurse Practitioner; Visit Provider Physician Assistant
DX: I74.2 Embolism and thrombosis of arteries of the upper extremities (principal)
CPT/HCPCS: 93931

== ENCOUNTER 2025-01-16 14:13 | Outpatient (CLI) | payer MEDICARE, SELFPAY ==
--- NOTE | 2025-01-16 14:15 | CT_ITS ---
FINAL REPORT CLINICAL HISTORY: lung cancer screening COMPARISON: 01/12/2024 FINDINGS: CT CHEST LOW DOSE SCREENING HISTORY: Screening exam for lung cancer. DOSE: CTDI vol: 2.90 mGy, DLP: 93.51 mGy*cm TECHNIQUE: Axial CT without IV contrast administration using low dose protocol. This study was performed with techniques to keep radiation doses as low as reasonably achievable, (ALARA). Individualized dose reduction techniques using automated exposure control or adjustment of mA and/or kV according to the patient's size were employed. No acute lung disease is present. No pulmonary lesions are seen suspicious for neoplasm. The thoracic aorta is in the upper limits of normal measuring 38 mm. No pleural or pericardial effusion is seen. No adenopathy or mass lesion is present. IMPRESSION: No evidence of lung cancer LUNG RADS CATEGORY 1S Modifier S: Thoracic aorta and upper limits of normal. RECOMMENDATION: 12 month LDCT follow up Reviewed, Interpreted and Dictated by Ginette Tanner MD Transcribed by Sharlene Yancey Authenticated and [facility]
== END 2025-01-16 23:59 | disposition home or self-care (01) ==
LOC: RAD 14:13
PROVIDERS: PCP Nurse Practitioner; Visit Provider Internal Medicine Pulmonary Disease
DX: J44.9 Chronic obstructive pulmonary disease, unspecified (principal); F17.210 Nicotine dependence, cigarettes, uncomplicated; Z12.2 Encounter for screening for malignant neoplasm of respiratory organs
CPT/HCPCS: 71271; 94010

== ENCOUNTER 2025-08-19 08:51 | Outpatient (CLI) | payer MEDICARE, SELFPAY ==
--- NOTE | 2025-08-19 08:53 | XR_ITS ---
FINAL REPORT TECHNIQUE: Bone densitometry calculations of the lumbar spine and left hip were obtained. CLINICAL HISTORY: SCREENING COMPARISON: None FINDINGS: Using L1-4, the bone mineral density of the spine is 0.782 g/cm2, corresponding to T-score of -2.4 and a Z score of -0.1. This is within the range of osteopenia. Using the left hip, the bone mineral density of the femoral neck is 0.567 g/cm2, corresponding to a T-score of -2.5 and a Z-score of -0.6. This is within the range of osteoporosis. FRAX not reported because some T-score at or below -2.5 NOTE: T-score: Standard deviation compared with peak bone mass of young adult mean. *Following the recommendations of the International Society of Bone densitometry, classification of hip BMD is based on the lower of two T-scores; total hip or femoral neck. IMPRESSION: 1. Bone mineral density of the lumbar spine within the range of osteopenia. 2. Bone mineral density of the left femoral neck within the range of osteoporosis. Reviewed, Interpreted and Dictated by Susie Delgado MD Transcribed by Kirsty Ferguson Authenticated and . [facility]
--- OUTSIDE RECORDS SUMMARY | 2025-08-19 08:53 | XMS_ITS | Clinical Summary ---
Author Organization [facility] Address [address] [place] [place] [address] Care Team Providers Care Supervisor Nurse Name Role Phone Unavailable Primary Care Provider Unavailabl e Allergies No known active allergies Medications amLODIPine (Norvasc) 5 MG tablet Take 1 tablet (5 mg) by mouth 1 (one) time each day. 2 Active atorvastatin (Lipitor) 40 MG tablet Take 1 tablet (40 mg) by mouth 1 (one) time each day. for cholesterol 2 Active bisoprolol (Zebeta) 5 MG tablet Take 1 tablet (5 mg) by mouth 1 (one) time each day. 2 Active clopidogrel (Plavix) 75 MG tablet Take 1 tablet (75 mg) by mouth 1 (one) time each day. 2 Active fluticasone (Flonase) 50 MCG/ACT nasal spray Administer 2 sprays into each nostril 1 (one) time each day. 2 Active lisinopril-hydr oCHLOROthiazide 20-12.5 MG tablet Take 1 tablet by mouth 1 (one) time each day. 2 Active pantoprazole (Protonix) 40 MG EC tablet Take 1 tablet (40 mg) by mouth 1 (one) time each day. 2 Active aspirin 81 MG EC tablet Take 1 tablet (81 mg) by mouth 1 (one) time each day. Active multivitamin (Theragran) tablet Take 1 tablet by mouth if needed. Patient takes it when she thinks about it Active albuterol 108 (90 Base) MCG/ACT inhaler Inhale 2 puffs every 4 (four) hours if needed for wheezing or shortness of breath. Active oxyCODONE (Roxicodone) 5 MG immediate release tablet Take 1 tablet (5 mg) by mouth every 4 (four) hours if needed for severe pain. 15 tablet Active Encounters Date Type Department Care Team Description 07/29/2025 Telephone Medical Office Building Obstetrics and Gynecology [address] [facility], [address] [place] [address] Carolin Coto APRN from Last 3 Months Family History 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 Relation Name Comments Conversions - Other Father Patient' s father is Heart attack Father Stroke Father Conversions - Other Mother Patient' s mother is Anesthesia problems Neg Hx Malig Hyperthermia Neg Hx Relation Name Status Comments Father Mother Social History Tobacco Use Types Packs/Day Years Used Date Smoking Tobacco: Every Day Cigarettes Smokeless Tobacco: Never Tobacco Cessation:Ready to Q uit: Not Asked; Counseling Given: Not Answered Alcohol Use Standard Drinks/Week Comments Yes 0 (1 standard drink = 0.6 oz pur e alcohol) social Comments No Sex and Gender Information Value Date Recorded Sex Assigned at Not on file Legal Sex Female 8:22 PM EDT Gender Identity Not on file Sexual Orientation Not on file Last Filed Vital Signs Vital Sign Reading Time Taken Comments Blood Pressure 134/77 11/21/2023 8:21 AM EST Pulse 66 11/21/2023 8:21 AM EST Temperature 36.4 C (97.6 F) 08/19/2023 11:00 AM EDT Respiratory Rate 16 08/19/2023 11:30 AM EDT Oxygen Saturation 96% 08/19/2023 11:30 AM EDT Inhaled Oxygen Concentration - - Weight 51.3 kg (113 lb) 11/21/2023 8:21 AM EST Height 154.9 cm (5' 1 ) 11/21/2023 8:21 AM EST Body Mass Index 21.35 11/21/2023 8:21 AM EST Plan of Treatment Upcoming Encounters Date Type Department Care Team (Late st Contact Info) Description 11/20/2025 10:30 AM EST Office Visit Medical Office Building Obstetrics and Gynecology [address] [facility], [address] [place] [address] Carolin Coto, TEXTILE CONSERVATOR [address] [address] Health Maintenance Due Date Last Done Comments [facility]-Bone Density Scan 1950 [facility]-Depression Screening 1950 [facility]-Hepatitis C Screening 1950 [facility]-Medicare Annual Wellness (AWV) 1950 [facility]-/Child/Adol SDOH Screenings 1950 [facility]- SDOH Screenings 1970 [facility]-Adult SDOH Screenings 1970 [facility]-DTaP,Tdap,and Td Vaccine s (1 - Tdap) 1971 CT Colonography 1997 Colonoscopy 1997 FIT-DNA 1997 FIT 1997 FOBT 1997 Sigmoidoscopy 1997 [facility]-Colorectal Cancer Screening 1997 [facility]-Pneumococcal Vaccine: 50 + Years (1 of 1 - PCV) 2002 [facility]-Zoster Vaccines (1 of 2) 2002 [facility]-Breast Cancer Screening 10/25/201810/14, 01/10/2015 [id number] Vaccine (2024- season) 2025 10/14/2021, 03/11/2021, 02/11/2021 [facility]-Influenza Vaccine (#1) 07/15/202512/20, 08/20/2015 [facility]-RSV Vaccine: 60+ Years o r (1 - 1-dose 75+ series) 2027 HPV Vaccines Aged Out No longer eligi ble based on patient's age to complete this topic [facility]-HIB Vaccines Aged Out No longer e ligible based on patient's age to complete this topic [facility]-Hepatitis A Vaccines Aged Out No longer eligible based on patient's age to complete this topic [facility]-IPV Vaccines Aged Out No longer e ligible based on patient's age to complete this topic [facility]-Rotavirus Vaccines Aged Out No lo nger eligible based on patient's age to complete this topic Medical Devices Implanted Type Area Aircraft Instrument Tester Device Identifier Shelf Expiration Date Model / Serial / Lot Pacemaker Pacemaker Left: Chest Stent Stent N/A: Heart Description:X 7 Graft Dura Repair 2x2 Synthecel - [id number] Implanted:Qty : 1 on 08/19/2023 by Luis Rodriguez MD at [facility] Right: Ear Synthes [facility]-[id number] 12/14/2025 [id number] 5.01S / / [id number] Graft Biodesign Otologic Repair 2.5cm X 2.5cm - [id number] Implanted:Qty : 1 on 08/19/2023 by Luis Rodriguez MD at [facility] Right: [employer] [facility]-[id number] 09/21/2024 [id number] / / [id number] Description:This is porcine tissue. The implant was not rinsed, thawed, or reconstituted- it was placed dry. There is no donor ID for porcine tissue. Procedures Procedure Name Priority Date/Time Associated Diagnosis Comments MAMMOGRAPHY BREAST SCREENING TOMOSYNTHESIS BILATERAL Routine 10/25/2016 12:00 PM EST from Last 3 Months or Most Recently Relevant to Health Maintenance Results * Mammography Breast Screening Tomosynthesis Bilateral (10/25/2016 12:00 PM EST) Anatomical Region Laterality Modality Breast Bilateral Mammography Impressions 10/27/2016 12:17 AM EST BI-RADS Assessment Category 2: Benign finding. RECOMMENDATION: Routine screening mammogram in 1 year. Page 1 of 2 Patient Name:Christy Guy : 1950 Age: 66 Gender: femaleDate of Service: 10/25/2016 eferring Phy:Roverto Cespedes M.D.Account: [id number] COMMUNICATION: The results and recommendations will be sent to the patient in a printed lay language version of the imaging report. The mammogram was read with the assistance of CAD and tomosynthesis. Read By: Yang Villalpando M.D. Signed By: Yang Villalpando M.D. on 10/25/2016 at 04:13:31 PM Page 2 of 2 Read By: YANG VILLALPANDO M.D. Signed By: YANG VILLALPANDO M.D. on 10/25/2016 at 16:13:32 Narrative 10/27/2016 12:17 AM EST REQUESTING PHYSICIAN: ROVERTO CESPEDES REASON FOR EXAMINATION/PROCEDURE: screen EXAMINATION / PROCEDURE: SCREENING MAMMO DIGITAL W/ CAD Oct 25 2016 15:30 TONY BILATERAL SCREENING Oct 25 2016 15:30 HISTORY: Patient is 66 years old and is seen for screening mammography. The patient has a history of left breast lumpectomy in December, and right breast surgical excisional biopsy more than 10 years ago - benign. The patient has a history of invasive ductal left rupert st carcinoma in 2003. The patient has no family history of breast cancer. COMPARISON: The present examination has been compared to prior imaging studies performed at [facility] on 06/14/2012 and 01/10/2015, and at an outside [facility] on 09/19/2009, 11/03/2010 and 03/31/2011. MAMMOGRAM TECHNIQUE: The following mammographic views were obtained: bilateral craniocaudal; bilateral mediolateral oblique; and bilateral tomosynthesis images were obtained. Computer assisted detection was used in the interpretation of this study. MAMMOGRAM FINDINGS: The breast tissue is heterogeneously dense, which may obscure detection of small masses. Finding 1: There is a stable xfio-wisfji-gwrntw scar in the right breast . Finding 2: There is a stable post-lumpectomy scar in the left breast. There are no suspicious masses, calcifications, or areas of architectural distortion in either breast. IMPRESSION: BI-RADS Assessment Category 2: Benign finding. RECOMMENDATION: Routine screening mammogram in 1 year. COMMUNICATION: The results and recommendations will be sent to the patient in a printed lay language version of the imaging report. The mammogram was read with the assistance of CAD and tomosynthesis. Read By: YANG VILLALPANDO M.D. Signed By: YANG VILLALPANDO M.D. on 10/25/2016 at 16:13:32 Verified by: YANG VILLALPANDO M.D. on Oct 25 2016 4:13P Transcribed by: [facility] Oct 25 2016 4:13P Dictated by: YANG VILLALPANDO M.D. on Oct 142015 4:13P Patient Name:Christy Guy : 1950 Age: 66 Gender: femaleDate of Service: 10/25/2016 eferring Phy:Roverto Cespedes M.D.Account: [id number] Roverto Cespedes M.D. [facility] [address] [facility] [address] [place] [address] FINAL REPORT PROCEDURE: Tomosynthesis Bilateral Screening - bilateral , Screening Mammogram with CAD - bilateral HISTORY: Patient is 66 years old and is seen for screening mammography. The patient has a history of left breast lumpectomy in December, and right breast surgical excisional biopsy more than 10 years ago - benign. The patient has a history of invasive ductal left breast carcinoma in 2003. The patient has no family history of breast cancer. COMPARISON: The present examination has been compared to prior imaging studies performed at [facility] on 06/14/2012 and 01/10/2015, and at an outside location on 09/19/2009, 11/03/2010 and 03/31/2011. MAMMOGRAM TECHNIQUE: The following mammographic views were obtained: bilateral craniocaudal; bilateral mediolateral oblique; and bilateral tomosynthesis images were obtained. Computer assisted detection was used in the interpretation of this study. MAMMOGRAM FINDINGS: The breast tissue is heterogeneously dense, which may obscure detection of small masses. Finding 1: There is a stable exny-zgdjyb-iqenhv scar in the right breast. Finding 2: There is a stable post-lumpectomy scar in the left breast. There are no suspicious masses, calcifications, or areas of architectural distortion in either breast. Procedure Note Nora Villalpandoamelierenny Dooley - 03/22/2021 REQUESTING PHYSICIAN: ROVERTO CESPEDES REASON FOR EXAMINATION/PROCEDURE: screen EXAMINATION / PROCEDURE: SCREENING MAMMO DIGITAL W/ CAD Oct 25 2016 15:30 TONY BILATERAL SCREENING Oct 25 2016 15:30 HISTORY: Patient is 66 years old and is seen for screening mammography. The patient has a history of left breast lumpectomy in December, and right breast surgical excisional biopsy more than 10 years ago - benign. The patient has a history of invasive ductal left rupert st carcinoma in 2003. The patient has no family history of breast cancer. COMPARISON: The present examination has been compared to prior imaging studies performed at [facility] on 06/14/2012 and 01/10/2015, and at an outside [facility] on 09/19/2009, 11/03/2010 and 03/31/2011. MAMMOGRAM TECHNIQUE: The following mammographic views were obtained: bilateral craniocaudal; bilateral mediolateral oblique; and bilateral tomosynthesis images were obtained. Computer assisted detection was used in the interpretation of this study. MAMMOGRAM FINDINGS: The breast tissue is heterogeneously dense, which may obscure detection of small masses. Finding 1: There is a stable hnff-oynsmh-njbskz scar in the right breast. Finding 2: There is a stable post-lumpectomy scar in the left breast. There are no suspicious masses, calcifications, or areas of architectural distortion in either breast. IMPRESSION: BI-RADS Assessment Category 2: Benign finding. RECOMMENDATION: Routine screening mammogram in 1 year. COMMUNICATION: The results and recommendations will be sent to the patient in a printed lay language version of the imaging report. The mammogram was read with the assistance of CAD and tomosynthesis. Read By: YANG VILLALPANDO M.D. Signed By: YANG VILLALPANDO M.D. on 10/25/2016 at 16:13:32 Verified by: YANG VILLALPANDO M.D. on Oct 25 2016 4:13P Transcribed by: [facility] Oct 25 2016 4:13P Dictated by: YANG VILLALPANDO M.D. on Oct 142015 4:13P Patient Name:Christy Guy : 1950 Age: 66 Gender: femaleDate of Service:10/25/2016 eferring Phy:Roverto Cespedes M.D.Account: [id number] Roverto Cespedes M.D. [facility] [address] [facility] [address] [place] [address] FINAL REPORT PROCEDURE: Tomosynthesis Bilateral Screening - bilateral , Screening Mammogram withCAD - bilateral HISTORY: Patient is 66 years old and is seen for screening mammography. The patienthas a history of left breast lumpectomy in December, and right breast surgical excisional biopsy more than 10years ago - benign. The patient has a history of invasive ductal left breast carcinoma in 2003. The patient has nofamily history of breast cancer. COMPARISON: The present examination has been compared to prior imaging studiesperformed at [facility] 06/14/2012 and 01/10/2015, and at an outside location on 09/19/2009,11/03/2010 and 03/31/2011. MAMMOGRAM TECHNIQUE: The following mammographic views were obtained: bilateral craniocaudal;bilateral mediolateral oblique; and bilateral tomosynthesis images were obtained. Computer assisted detection was usedin the interpretation of this study. MAMMOGRAM FINDINGS: The breast tissue is heterogeneously dense, which may obscure detection ofsmall masses. Finding 1: There is a stable aweg-icckug-edctpl scar in the rightbreast. Finding 2: There is a stable post-lumpectomy scar in the left breast. There are no suspicious masses, calcifications, or areas of architecturaldistortion in either breast. IMPRESSION: BI-RADS Assessment Category 2: Benign finding. RECOMMENDATION: Routine screening mammogram in 1 year. Page 1 of 2 Patient Name:Christy Guy : 1950 Age: 66 Gender: femaleDate of Service:10/25/2016 eferring Phy:Roverto Cespedes M.D.Account: [id number] COMMUNICATION: The results and recommendations will be sent to the patient in a printedlay language version of the imaging report. The mammogram was read with the assistance of CAD and tomosynthesis. Read By: Yang Villalpando M.D. Signed By: Yang Villalpando M.D. on 10/25/2016 at 04:13:31 PM Page 2 of 2 Read By: YANG VILLALPANDO M.D. Signed By: YANG VILLALPANDO M.D. on 10/25/2016 at 16:13:32 us Historical Provider IMG BI PROCEDURES Final Resu lt from Last 3 Months or Most Recently Relevant to Health Maintenance Insurance [facility] MEDICARE
--- OUTSIDE RECORDS SUMMARY | 2025-08-19 08:53 | XMS_ITS | Data Portability ---
Author Organization [facility] ADMIN Address [address] [place] [id number] Assessment No assessment recorded. Plan of Treatment Reminders Order Date Submit Date Provider Last Modified By Organization Details Last Modified Time Details Appointments None recorded. Lab urinalysis, dipstick 2023 024 [email or web address] [facility], [address], [place], [address], 4 11:34:31 Referral None recorded. Procedures None recorded. Surgeries None recorded. Imaging None recorded. Medication Orders oxybutynin chloride ER 10 mg tablet,exte nded release 24 hr 2023 024 [email or web address] [facility], [address] [place] [address] [address], [id number], 4 11:31:54 oxybutynin chloride ER 10 mg tablet,exte nded release 24 hr 2023 024 [email or web address] [facility], [address] [place] [address] [address], [place], [phone], 4 16:03:12 Patient TargetsNo targets recorded. Patient InstructionsNo instructions recorded. Reason for Referral None Reported. Results Created Date Observation Date Name Description Value Unit Range Abnormal Flag Note LastModifiedBy Organization Detail LastModifiedTime 06/12/20 24 06/12/2024 urina lysis , dipst ick Leukocytes (reference range) negati ve Not Available [facility] [place] [address] [address] [facility] [address], [place], [address], 06/12/2024 11:11:23 06/12/20 24 06/12/2024 urina lysis , dipst ick Nitrite (reference range:) negati ve Not Available [place] [address] [address] [facility] [address], [place], [address], 06/12/2024 11:11:23 06/12/20 24 06/12/2024 urina lysis , dipst ick Urobilinogen (reference range) 0.2 Not Available [facility] [place] [address] [address] [facility] [address], [place], [address], 06/12/2024 11:11:23 06/12/20 24 06/12/2024 urina lysis , dipst ick Protein (reference range) negati ve Not Available [place] [address] [address] [facility] [address], [place], [address], 06/12/2024 11:11:23 06/12/20 24 06/12/2024 urina lysis , dipst ick pH (reference range 5-8.5) 6.5 Not Available [place] [address] [address] [facility] [facility] [address], [place], [address], 06/12/2024 11:11:23 06/12/20 24 06/12/2024 urina lysis , dipst ick Blood (reference range:) negati ve Not Available [place] [address] [address] [facility] [address], [place], [address], 06/12/2024 11:11:23 06/12/20 24 06/12/2024 urina lysis , dipst ick Specific [place] (reference range) 1.010 Not Available [facility] [place] [address] [address] [facility] [address], [place], [address], 06/12/2024 11:11:23 06/12/20 24 06/12/2024 urina lysis , dipst ick Ketone (reference range) negati ve Not Available [place] [address], [place], [address], 06/12/2024 11:11:23 06/12/20 24 06/12/2024 urina lysis , dipst ick Bilirubin (reference range) negati ve Not Available [place] [address], [place], [address], 06/12/2024 11:11:23 06/12/20 24 06/12/2024 urina lysis , dipst ick Glucose (reference range) negati ve Not Available [place] [address] [address] [facility] [address], [place], [address], 06/12/2024 11:11:23 06/12/20 24 06/12/2024 urina lysis , dipst ick Color (reference range: yellow-brown ) Yellow Not Available [place] [address] [address] [facility] [address], [place], [address], 06/12/2024 11:11:23 Result Notes None recorded. 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 Active 2023 AYANA Mcadams [place] [facility] [place] 4 10:49:05 Hypertensiv e disorder 47843686 Active 2023 AYANA Mcadams [place] [facility] [place] 4 10:49:13 Myocardial infarction 96368499 Active 2023 AYANA Mcadams [facility] [place] 4 10:49:25 Gastroesoph ageal reflux disease 921756593 Active 2023 AYANA Mcadams [facility] [place] 4 10:49:32 Malignant neoplasm of breast 124510747 Completed 202304/11/2024 AYANA Mcadams [facility] [place] 4 10:49:48 Urge incontinenc e of urine 97611634 Active 2024 AYANA Mcadams [facility] [place] 5 09:27:45 Problem Notes None recorded. Procedures Surgical History Date Name Laterality Status Provider Name and Address Organization Details Recorded Time delivery completed Barbara BYRNE [facility] [place] 04/11/2024 10:51:04 lumpectomy of breast completed Barbaraholley BYRNE [facility] [place] 04/11/2024 10:51:16 cholecystectomy completed Barbara Ortega [facility] [place] 04/11/2024 10:51:28 Pacemaker monitr audible/vis completed Barbara Ortega ELVIA [facility] [place] 04/11/2024 10:52:17 total hysterectomy with removal of both tubes and ovaries completed Barbara BYRNE [facility] [place] 04/11/2024 10:52:50 Imaging Results None recorded. Procedure Notes None recorded. Medical Equipment None Reported. Allergies No known drug allergies Medications Name Sig Start Date Stop Date Status Note LastModified by Organization Details LastModified Time tolterodine ER 2 mg capsule,ext ended release 24 hr TAKE ONE CAPSULE BY MOUTH EVERY DAY active Not Available Not Available No t Available atorvastati n 40 mg tablet TAKE ONE TABLET BY MOUTH EVERY DAY FOR CHOLESTER OL active Not Available Not Available No t Available lisinopril 20 mg-hydrochl orothiazide 12.5 mg tablet TAKE ONE TABLET BY MOUTH EVERY DAY active Not Available Not Available No t Available oxybutynin chloride ER 10 mg tablet,exte nded release 24 hr TAKE ONE TABLET BY MOUTH EVERY DAY active Not Available Not Available No t Available azithromyci n 250 mg tablet TAKE 2 TABLETS BY MOUTH ON DAY 1, THEN TAKE 1 TABLET DAILY ON DAYS 2-5 -- FINISH ALL MEDICINE -- 04/11 completed Not Available Not Available Not Available promethazin e 12.5 mg tablet 04/11 completed Not Available Not Available Not Available prednisone 20 mg tablet TAKE ONE TABLET BY MOUTH TWICE DAILY FOR 7 DAYS -- FINISH ALL MEDICINE -- --TAKE WITH FOOD-- 04/11 completed Not Available Not Available Not Available clopidogrel 75 mg tablet TAKE ONE TABLET BY MOUTH EVERY DAY active Not Available Not Available No t Available amlodipine 5 mg tablet TAKE ONE TABLET BY MOUTH EVERY DAY 06/12 completed Not Available Not Available Not Available bisoprolol fumarate 10 mg tablet TAKE ONE TABLET BY MOUTH EVERY DAY active Not Available Not Available No t Available bisoprolol fumarate 5 mg tablet TAKE ONE TABLET BY MOUTH EVERY DAY 04/11 completed Not Available Not Available Not Available cephalexin 500 mg capsule TAKE ONE CAPSULE BY MOUTH TWICE DAILY FOR 10 DAYS 04/11 completed Not Available Not Available Not Available pantoprazol e 40 mg tablet,joya yed release TAKE ONE TABLET BY MOUTH EVERY DAY FOR GERD active Not Available Not Available No t Available montelukast 10 mg tablet TAKE ONE TABLET BY MOUTH EVERY DAY active Not Available Not Available No t Available albuterol sulfate HFA 90 mcg/actuati on aerosol inhaler INHALE TWO PUFFS BY MOUTH EVERY 4 HOURS NEEDED active Not Available Not Available No t Available fluticasone propionate 50 mcg/actuati on nasal spray,suspe nsion INSTILL 2 SPRAYS IN EACH NOSTRIL EVERY DAY active Not Available Not Available No t Available amoxicillin 875 mg-potassiu m clavulanate 125 mg tablet 04/11 completed Not Available Not Available Not Available nicotine 7 mg/24 hr daily transdermal patch apply 1 PATCH topically EVERY DAY active Not Available Not Available No t Available oxycodone 5 mg tablet 06/12 completed Not Available Not Available Not Available hydroxyzine pamoate 25 mg capsule TAKE ONE CAPSULE BY MOUTH 2-3 times a DAY NEEDED FOR ANXIETY active Not Available Not Available No t Available Vitals Date Recorded Body height Body mass index (BMI) Body weight Body temperature Systolic And Diastolic Provider Name and Address Organization Details Last Updated DateTime 04/11/2024 154.94 cm 20.8 kg/m2 76778.1 6 g 97.7 [degF] 136/74 mm[Hg] Barbara Ortega LPNT [facility] [place] 4 10:47:43 Date Recorded Body height Body mass index (BMI) Body weight Body temperature Oxygen saturation Oxygen saturation in Arterial blood by Pulse oximetry Heart rate Systolic And Diastolic Provider Name and Address Organization Details Last Updated DateTime 4 154.94 cm 21.7 kg/m2 34244.6 9 g 98.9 [degF] 98 % 98 % 74 /min 108/68 mm[Hg] Barbara PIÑA - LPNT [facility] [place] 4 11:10:53 Social History None recorded. Functional Status Question Answer Note LastModified by Organizat ion Details LastModified Time Do you use any illicit or recreational drugs? No Information not available 04/11/2024 What is your level of alcohol consumption? None Information not available 04/11/2024 Mental Status None recorded. Family History Nothing Reported Notes:Mother- Diabetic & hig h blood pressure Father- High blood pressure, COPD 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 No medical history recorded. Gynecological HistoryNo gynecological history recorded. Obstetrics History GPAL:G 0 P 0 0 0 0 Past Encounters Encounter ID Performer Location Encounter Start Date Encounter Closed Date Diagnosis/Indication Diagnosis SNOMED-CT Code Diagnosis ICD10 Code Diagnosis IMO Codes Diagnosis Note [id number] Isa Chappell NP, S [facility] [address] [facility] [address] [place] [address] 04/11/2024 09:44:07 04/11/2024 11:44:06 Urge incontinence of urine 77091293 N39.41 voided prior to appointmen tStart Oxybutynin 10mg daily. discussed possible SEs of the medication .RTC in 8 weeks for f/u of Oxybutynin treatment. Will do pelvic exam at next visit Nocturia 010402320 R35.1 Long-term current use of anticoagulant 117336604 Z79.01 [id number] Isa Chappell NP, S [facility] [place] [address] 06/12/2024 10:58:55 06/12/2024 11:24:32 Urge incontinence of urine 48358072 N39.41 UA negativeCo ntinue Oxybutynin 10mg dailyRTC in 6 months for f/u Nocturia 632860845 R35.1 Health Concerns Section Related Observation LastModified by Organization Detai ls LastModified Time None Recorded Concern Status LastModified by Organization Details LastModified Time None Recorded Advance Directives Directive None Recorded Payers Insurance Date Sequence Insurance Name Policy Number Policy [place] Covered Member ID [place] Member ID Guarantor Name 12/07/2024 1 [place] (MEDICARE REPLACEMENT/A DVANTAGE - PPO) [id number] Christy Guy [id number] Christy Glasgowington Notes Date Note Type Note Provider Name and Address Organization Details Recorded Time 04/11/2024 text/html 74 yowf Presents to clinic for evaluation of urinary urge incontinence. Patient reports he has been experiencing urge incontinence for the past several months. Patient reports he wears a pad and changes the pad at least 3 times a day. Reports she is never tried any medications for this. Reports urinary stream is good. Nocturia x1. Bowels move every other day. She denies any dysuria or gross hematuria. Reports she has a prior history of recurrent UTIs when she was younger but none in the past several years. Denies any history of kidney stones. Reports she had a complete hysterectomy in 2002. Denies any history of glaucoma. Patient has a history of coronary artery disease and ME has had 7-8 stents placed in her heart and had a pacemaker placed in 2014. Patient's director radio is Dr. Mcdaniels. patient is on chronic anticoagulation with Plavix and aspirin daily. Isa Chappell, SCOO[place], [address], [place], [address], [facility] [place] [facility] [place] 04/11/2024 11:24:21 06/12/2024 text/html 74 yowf RTC for 8 week f/u of UUI. At last visit on 04/11/2024, pt was started on Oxybutynin 10mg daily. Patient reports the medication has significantly helped with her urinary incontinence. Patient reports she was using 3 or more pads a day now using 0-1. She denies any overt side effects from the medication. Reports urinary stream is good. Nocturia x1. Bowels move every other day. She denies any dysuria or gross hematuria. Had a complete hysterectomy in 2002. Patient has a history of coronary artery disease and ME has had 7-8 stents placed in her heart and had a pacemaker placed in 2014. Patient's director radio is Dr. Mcdaniels. Patient is on chronic anticoagulation with Plavix and aspirin daily. Isa Chappell NP, S [address] [facility], [place], [address], [facility] [place] [facility] [place] 06/12/2024 11:27:42 OBGyn Episode No OBEpisode recorded.
--- OUTSIDE RECORDS SUMMARY | 2025-08-19 08:53 | XMS_ITS | Encounter Summary ---
Author Organization [facility] Address [address] [place] [address] Care Team Providers Care Building Mover Name Role Phone Unavailable Primary Care Provider Unavailabl e Encounter Details Date Type Department Care Team ([facility] Contact Info) Description 07/29/2025 Telephone Medical Office Building Obstetrics and Gynecology [address] [facility] [place] [address] Carolin Coto, REVIEW SPECIALIST [address] [facility] [address] [place] [address] Social History Tobacco Use Types Packs/Day Years Used Date Smoking Tobacco: Every Day Cigarettes Smokeless Tobacco: Never Alcohol Use Standard Drinks/Week Comments Yes 0 (1 standard drink = 0.6 oz pur e alcohol) social Comments No Sex and Gender Information Value Date Recorded Sex Assigned at Not on file Legal Sex Female 8:22 PM EDT Gender Identity Not on file Sexual Orientation Not on file documented as of this encounter Miscellaneous Notes * Telephone Encounter - Olivia Salinas - 07/29/2025 11:32 AM EDT Contacted patient. Informed patient unfortunately, Carolin currently has no sooner availability, [facility] a [facility] and be scheduled on a waitlist. Patient expressed understanding with no other questions nor concerns at this time. CESAR Baker * Telephone Encounter - Maricel Miller - 07/29/2025 10:08 AM EDT Clinical Concern/Question Reason for Call: pt has appt for bladder prolapse in Nov but is having more pain & states bladder is pushing on vagina. Would like a call back to see if she can get in sooner. Best contact number: [phone] (mobile) Optimal time of day to reach caller: ANYTIME Additional comments/information from caller: None Note: Please do not reply to this message. Follow-up communication and further actions as a result of this message need to be communicated with the patient directly, if the patient is not active onMyChart. If the patient is active on MyChart, they will receive notification of the communication/outcome via [employer]. documented in this encounter Plan of Treatment Upcoming Encounters Date Type Department Care Team (Late st Contact Info) Description 11/20/2025 10:30 AM EST Office Visit Medical Office Building Obstetrics and Gynecology [address] [facility] [place] [address] Carolin Coto, BENJAMIN [address] [facility] [address] [place] [address] documented as of this encounter Visit Diagnoses Not on filedocumented in this encounter Additional Health Concerns Assessment Noted Time A fall risk assessment has been complete d for the patient 12/21/2022 10:40 AM EST A Body Mass Index follow-up plan has been documented for the patient 11/21/2023 8:43 AM EST documented as of this encounter
== END 2025-08-19 23:59 | disposition home or self-care (01) ==
LOC: RAD 08:51
PROVIDERS: PCP Nurse Practitioner; Visit Provider Family Medicine
DX: M81.0 Age-related osteoporosis without current pathological fracture (principal)
CPT/HCPCS: 77080